=== PATIENT | female | born 1970 | race Caucasian/White ===

== ENCOUNTER → 2018-06-10 | Outpatient (CLI) | payer BC ==
[~2018-06-10] MED LIST: FLUC200T45 PO; NITR-65 PO; PHEN200T27 PO
--- NOTE | 2018-06-10 11:01 | Diagnostic Imaging Report ---
INDICATION: Routine screening. COMPARISON: No prior mammograms are available for comparison. This is a baseline study. TECHNIQUE: 2D and 3D bilateral screening mammography was performed with CAD. FINDINGS: Both breasts are heterogeneously dense, limiting the sensitivity of mammography. There is a parenchymal density in the outer right breast at posterior depth, best seen on the CC view. This likely is superiorly located on the MLO view. Additional views are recommended. The left breast is unremarkable. No suspicious microcalcifications are seen. The axillae are unremarkable. IMPRESSION: Right breast density. Additional views are recommended. ACR BI-RADS Category 0: Incomplete. (Needs additional imaging evaluation). Result letter will be mailed to the patient. Note: At least 10% of breast cancer is not imaged by mammography. Dictated by: Dictated on workstation # [id number]
== END ==
LOC: RAD 07:18
PROVIDERS: ATTEND Family Medicine
DX: Z12.31 Encounter for screening mammogram for malignant neoplasm of breast (principal); N64.89 Other specified disorders of breast
CPT/HCPCS: 77067

== ENCOUNTER 2022-07-12 08:05 | Outpatient (CLI) | payer BC ==
[~2022-07-12] VITALS: Ht 170.2 cm; Wt 84.5 kg
[2022-07-12] MEDS ORDERED: LOVA20TA2 PO (08:31)
[2022-07-12] MEDS ORDERED: NF-DICLOTA PO (08:31)
[2022-07-12] MEDS ORDERED: GLIM4TAB5 PO (08:31)
[2022-07-12] MEDS ORDERED: OMEP20CA18 PO (08:31)
[2022-07-12] MEDS ORDERED: PARO10TA3 PO (08:31)
[2022-07-12] MEDS ORDERED: DAPA5TAB PO (08:31)
[2022-07-12 09:20] VITALS: BP 122/75
[2022-07-12 09:33] LABS: BILIRUBIN,URINE NEGATIVE (NEGATIVE); CLARITY,URINE CLEAR; COLOR,URINE YELLOW; GLUCOSE, URINE (UA) 3+ (NEGATIVE); KETONES,URINE NEGATIVE (NEGATIVE); LEUKOCYTE ESTERASE ,URINE NEGATIVE (NEGATIVE); NITRITE,URINE NEGATIVE (NEGATIVE); PROTEIN,URINE NEGATIVE (NEGATIVE)
[2022-07-12] MEDS ORDERED: POTA99CA PO (09:33)
[2022-07-12] MEDS ORDERED: CHOL500050 PO (09:33)
[2022-07-12] MEDS ORDERED: IRON1TAB41 PO (09:33)
[2022-07-12] MEDS ORDERED: DOCU-143 PO (09:33)
[2022-07-12 09:44] LABS: BACTERIA,URINE NEGATIVE /HPF; SQUAMOUS EPITHELIAL CELL,UR RARE /HPF; WBC,URINE RARE /HPF
[2022-07-12 10:05] LABS: BASOPHILS % (AUTO) 1 % (0-10); EOSINOPHILS # (AUTO) 0.2 10^3/uL (0.0-0.3); EOSINOPHILS % (AUTO) 3 % (0-10); HEMATOCRIT 38 % (35-52); HEMOGLOBIN 12.2 g/dL (11.5-16.0); LYMPHOCYTES % (AUTO) 31 % (12-44); MEAN CORPUSCULAR HEMOGLOBIN 28 pg (25-34); MEAN CORPUSCULAR HGB CONC 32 g/dL (32-36); MEAN CORPUSCULAR VOLUME 85 fL (80-99); MEAN PLATELET VOLUME 10.9 fL (9.0-12.2); MONOCYTES # (AUTO) 0.3 10^3/uL (0.0-1.0); MONOCYTES % (AUTO) 5 % (0-12); NEUTROPHILS # (AUTO) 3.9 10^3/uL (1.8-7.8); NEUTROPHILS % (AUTO) 60 % (42-75); PLATELET COUNT 229 10^3/uL (130-400); WHITE BLOOD COUNT 6.4 10^3/uL (4.3-11.0)
--- NOTE | 2022-07-12 10:05 | Physical Therapy Pre-Op Eval ---
PT Pre-Surgical Assessment Type of Surgery Type of Surgery: left total knee Prior Level of Function Current Living Status: Spouse Locomotion (Upon Admit): Independent Subjective Subjective Unrated pain in left knee, varus in left knee Current Living Status: Spouse Entry Into Home: Stairs With Railing Steps Into Home: 7 Motor Control Motor Control: Motor Control WNL ROM ROM: WFL Strength Strength: WFL Gait Independent with transfers and ambulation without using a walker Treatment Rendered Treatment: Patient instructed in assistive device, supported ambulation. Patient instructed in and given written program of ROM and strengthening exercises to be preformed post-op. Patient instructed in movement precautions where applicable. Patient demonstrates understandings of post-operative therapy protocol including gait pattern and exercise program. Pre-operative instruction completed; await physical therapy orders after surg jd. Treatment Goal Met: Yes Charges/GCodes Time In: 923 Time Out: 933 Total Billed Treatment Time: 10 Total Billed Treatment 1 visit CRISTOBAL AMARO PT Jul 12, 2022 10:05
[2022-07-12 10:14] LABS: PROTHROMBIN TIME PATIENT 13.4 SEC (12.2-14.7)
[2022-07-12 10:16] LABS: ALBUMIN 4.1 GM/DL (3.2-4.5); POTASSIUM 4.2 MMOL/L (3.6-5.0)
[2022-07-12 10:17] LABS: CALCIUM 9.5 MG/DL (8.5-10.1)
[2022-07-12 10:19] LABS: TOTAL PROTEIN 6.9 GM/DL (6.4-8.2)
[2022-07-12 10:21] LABS: BILIRUBIN,TOTAL 0.4 MG/DL (0.1-1.0)
[2022-07-12 10:22] LABS: CREATININE SERUM 0.85 MG/DL (0.60-1.30)
[2022-07-12 10:24] LABS: ERYTHROCYTE SEDIMENTATION RATE 11 MM/HR (0-30)
--- NOTE | 2022-07-12 12:49 | Diagnostic Imaging Report ---
INDICATION: Left knee replacement. Preoperative evaluation EXAMINATION: 2 view chest 07/12/2022. FINDINGS: There is a nodular density within the left midlung with no prior imaging available for comparison. Remaining lungs clear. No effusions. No pneumothorax. Heart and pulmonary vasculature normal. IMPRESSION: 1. Masslike density in the left midlung just below the scapula. CT could help exclude a true nodule. Remaining chest unremarkable. Dictated by: Dictated on workstation # [id number]
== END 2022-07-12 14:44 | disposition home or self-care (01) ==
LOC: PREOP 08:05
PROVIDERS: ATTEND Orthopaedic Surgery
DX: Z01.818 Encounter for other preprocedural examination (principal); M17.12 Unilateral primary osteoarthritis, left knee; R53.83 Other fatigue
CPT/HCPCS: 36415; 71046; 80053; 81000; 85025; 85610; 85652; 86850; 86900; 86901; 87081; 93005

== ENCOUNTER → 2022-07-14 | Outpatient (CLI) | payer BC ==
[~2022-07-14] MED LIST changes: +CHOL500050 PO; +DAPA5TAB PO; +DOCU-143 PO; +GLIM4TAB5 PO; +IOHEXOL 350 MG/ML 100 ML (OMNIPAQUE 350) VIAL IV ONE; +IRON1TAB41 PO; +LOVA20TA2 PO; +NF-DICLOTA PO; +NS 100 ML (IVPB) BAG IV ONE; +OMEP20CA18 PO; +PARO10TA3 PO; +POTA99CA PO
--- NOTE | 2022-07-14 13:39 | Diagnostic Imaging Report ---
EXAMINATION: CT chest with contrast, 07/14/2022. TECHNIQUE: Multiple contiguous axial images were obtained through the chest after administration of intravenous contrast. Auto Exposure Controls were utilized during the CT exam to meet ALARA standards for radiation dose reduction. INDICATION: Follow-up abnormal chest x-ray. History of prior molar and cancer with chemotherapy. COMPARISON: Correlation made to radiographs of the chest from 07/12/2022. FINDINGS: On the third series, image #94, there is a focal ill-defined nodular density with central lucency noted. This does not correspond to the radiographic findings but is suspicious for a nodule. A focal inflammatory process is also possible, and a short-term three-month follow-up CT is recommended for reevaluation. An additional small nodule is seen within the right lower lobe towards the superior segment, image #55. The remaining lungs demonstrate evidence of old granulomatous disease. There are small nodules in the left lobe of the thyroid, some of which appear peripherally calcified. Sonographic characterization recommended. Scattered nonenlarged lymph nodes seen within the mediastinum with no lymphadenopathy appreciated. There is no hilar or axillary adenopathy. There is no pericardial effusion. No pleural effusions. Visualized upper abdomen is unremarkable. There is no acute osseous abnormality. Old left rib fractures noted. IMPRESSION: 1. Vague ground-glass nodularity in the left lower lobe. This could be on the basis of an inflammatory or infectious process, but three-month follow-up CT chest recommended to exclude a nodule. This could reevaluate the small nodule within the superior segment of the right lower lobe. 2. Old granulomatous disease. 3. No abnormality seen within the left lung to correspond to the density on radiographs. This must have been caused by artifact. Follow-up chest x-ray could reevaluate. Dictated by: Dictated on workstation # [id number]
== END ==
LOC: RAD 12:15
PROVIDERS: ATTEND Family Medicine
DX: R91.1 Solitary pulmonary nodule (principal); L92.9 Granulomatous disorder of the skin and subcutaneous tissue, unspecified
CPT/HCPCS: 71260

== ENCOUNTER → 2022-07-25 | Outpatient (CLI) | payer BC ==
[~2022-07-25] MED LIST changes: -IOHEXOL 350 MG/ML 100 ML (OMNIPAQUE 350) VIAL IV ONE; -NS 100 ML (IVPB) BAG IV ONE
--- NOTE | 2022-07-25 09:29 | Diagnostic Imaging Report ---
INDICATION: Lower respiratory infection PA and lateral chest Heart and mediastinum are normal. Lungs are clear. There are no effusions or pneumothoraces. IMPRESSION: Unremarkable chest. Dictated by: Dictated on workstation # [id number]
== END ==
LOC: RAD 08:58
PROVIDERS: ATTEND Family Medicine
DX: R91.8 Other nonspecific abnormal finding of lung field (principal)
CPT/HCPCS: 71046

== ENCOUNTER 2022-08-23 05:30 | Outpatient (CLI) | payer BC ==
[~2022-08-23] VITALS: Ht 170.2 cm; Wt 84.5 kg
[2022-08-23 09:01] VITALS: BP 115/74
[2022-08-23 09:45] LABS: BASOPHILS # (AUTO) 0.1 10^3/uL (0.0-0.1); BASOPHILS % (AUTO) 1 % (0-10); EOSINOPHILS # (AUTO) 0.3 10^3/uL (0.0-0.3); EOSINOPHILS % (AUTO) 4 % (0-10); HEMATOCRIT 41 % (35-52); HEMOGLOBIN 13.3 g/dL (11.5-16.0); LYMPHOCYTES # (AUTO) 2.2 10^3/uL (1.0-4.0); LYMPHOCYTES % (AUTO) 31 % (12-44); MEAN CORPUSCULAR HEMOGLOBIN 28 pg (25-34); MEAN CORPUSCULAR HGB CONC 33 g/dL (32-36); MEAN CORPUSCULAR VOLUME 85 fL (80-99); MEAN PLATELET VOLUME 11.5 fL (9.0-12.2); MONOCYTES # (AUTO) 0.3 10^3/uL (0.0-1.0); MONOCYTES % (AUTO) 5 % (0-12); NEUTROPHILS # (AUTO) 4.2 10^3/uL (1.8-7.8); NEUTROPHILS % (AUTO) 59 % (42-75); PLATELET COUNT 280 10^3/uL (130-400); WHITE BLOOD COUNT 7.1 10^3/uL (4.3-11.0)
[2022-08-23 09:47] LABS: BILIRUBIN,URINE NEGATIVE (NEGATIVE); CLARITY,URINE CLEAR; COLOR,URINE YELLOW; GLUCOSE, URINE (UA) 3+ (NEGATIVE); KETONES,URINE NEGATIVE (NEGATIVE); LEUKOCYTE ESTERASE ,URINE NEGATIVE (NEGATIVE); NITRITE,URINE NEGATIVE (NEGATIVE); PH,URINE 6.5 (5-9); PROTEIN,URINE NEGATIVE (NEGATIVE)
[2022-08-23 09:55] LABS: BACTERIA,URINE NEGATIVE /HPF; SQUAMOUS EPITHELIAL CELL,UR 0-2 /HPF
[2022-08-23 09:56] LABS: AMORPHOUS SEDIMENT,UR RARE AMOR URATES /LPF
[2022-08-23 09:59] LABS: INR 0.9 (0.8-1.4); PROTHROMBIN TIME PATIENT 12.8 SEC (12.2-14.7)
[2022-08-23 10:03] LABS: ALBUMIN 4.5 GM/DL (3.2-4.5); BILIRUBIN,TOTAL 0.5 MG/DL (0.1-1.0); CALCIUM 10.1 MG/DL (8.5-10.1); CREATININE SERUM 0.9 MG/DL (0.60-1.30); TOTAL PROTEIN 7.7 GM/DL (6.4-8.2)
[2022-08-23 10:11] LABS: ERYTHROCYTE SEDIMENTATION RATE 11 MM/HR (0-30)
== END 2022-08-23 12:22 ==
LOC: PREOP 05:30
PROVIDERS: ATTEND Orthopaedic Surgery
DX: Z01.818 Encounter for other preprocedural examination (principal); M17.12 Unilateral primary osteoarthritis, left knee
CPT/HCPCS: 36415; 80053; 81000; 82308; 85025; 85610; 85652; 87081

== ENCOUNTER 2022-08-30 05:56 | Inpatient (IN) | payer BC ==
--- NOTE | 2022-08-23 06:55 | HISTORY AND PHYSICAL ---
DATE OF SERVICE: 08/30/2022 ADMISSION HISTORY AND PHYSICAL This will be for inpatient admission on 08/30/2022 for left total knee arthroplasty. The patient will require regular inpatient admission due to pain management needs, physical therapy and gait abnormalities. HISTORY: The patient is a 52-year-old female with longstanding progressive left knee pain. Radiographs revealed severe medial and patellofemoral arthrosis with osteophyte formation. She has undergone treatment with injections, which provided only temporary relief of her symptoms. She reports progressive loss of function and activity limitations. Because of this, she has elected to proceed with surgical intervention. REVIEW OF SYSTEMS: No chest pain, no shortness of breath. No dysuria. PAST MEDICAL HISTORY: Diabetes mellitus. PAST SURGICAL HISTORY: and D and C. FAMILY HISTORY: Unknown. PRIMARY CARE PROVIDER: Dr. Adkins. MEDICATIONS: Omeprazole, diclofenac, paroxetine, lovastatin, glimepiride, and Farxiga. ALLERGIES: PENICILLIN, METAL, AND CODEINE. SOCIAL HISTORY: The patient denies alcohol and tobacco use. PHYSICAL EXAMINATION: GENERAL: The patient is well-developed, well-nourished, in no acute distress. HEENT: Normocephalic, atraumatic. Pupils are equal, round and reactive to light. Oropharynx is clear. NECK: Supple. No lymphadenopathy. LUNGS: Clear to auscultation bilaterally. HEART: Regular rate and rhythm. ABDOMEN: Soft, nontender, nondistended. EXTREMITIES: The left knee demonstrates varus alignment. She is tender along her medial femoral condyle. She has pain medially with Edison's. Range of motion is 0/3/120. There is no varus or valgus laxity. Negative anterior and posterior drawer. IMPRESSION: Severe left knee osteoarthritis. PLAN: Left total knee arthroplasty. The risks, benefits, options, ramifications and recovery have been discussed at length with the patient. She understands and wishes to proceed. Job ID: [id number] DocumentID: [id number] Dictated Date: 08/10/2022 15:31:52 Protector Plate Attacher Date: 08/10/2022 18:27:00 Dictated By: CODIE PINEDA MD
[~2022-08-30] VITALS: Ht 170.2 cm; Wt 84.5 kg
[2022-08-30] VITALS (12 sets, daily range): BP systolic 100–148; BP diastolic 65–89
[2022-08-30] MEDS ORDERED: LIDOCAINE PF 2% 5 ML (XYLOCAINE) VIAL ONE (06:52)
[2022-08-30] MEDS ORDERED: ROPIVACAINE 5MG/ML 30ML VIAL ONE (06:52)
[2022-08-30] MEDS ORDERED: MIDAZOLAM 2 MG/2 ML (VERSED) VIAL ONE (06:52)
[2022-08-30] MEDS ORDERED: NS (IVPB) 50 ML ONE (06:57)
[2022-08-30] MEDS ORDERED: CEFUROXIME 1.5 GM/15 ML (ZINACEF) VIAL ONE (06:57)
[2022-08-30] MEDS ORDERED: fentaNYL INJ 100 MCG/2 ML AMP ONE (06:57)
[2022-08-30] MEDS ORDERED: CEFUROXIME INJECTION 1,500 MG in NS (IVPB) 50 ML IV ONE (07:00)
[2022-08-30] MEDS: LACTATED RINGERS 1,000 ML IV PRN ×2 (07:09→08:05)
[2022-08-30] MEDS ORDERED: diphenhydrAMINE 50 MG/ML INJ (BENADRYL) IVP PRN (07:15)
[2022-08-30] MEDS ORDERED: morphine PCA 100 MG/100 ML BAG IV PRN (07:15)
[2022-08-30] MEDS ORDERED: NALOXONE 0.4 MG/ML 1 ML (NARCAN) VIAL IV PRN (07:15)
[2022-08-30] MEDS ORDERED: INTRA-ARTICULAR IU ONE ×5 (07:30)
--- NOTE | 2022-08-30 07:31 | Progress Note-Post Operative ---
Post-Operative Progess Note Surgeon (s)/Textile Finisher (s) Surgeon CODIE PINEDA MD Textile Finisher: Abilio Bunch Pre-Operative Diagnosis left knee primary osteoarthritis Post-Operative Diagnosis left knee primary osteoarthritis Procedure & Operative Findings Date of Procedure 08/30/22 Procedure Performed/Findings left total knee arthroplasty Anesthesia Type GETA Estimated Blood Loss Estimated blood loss (mL): minimal Specimens/Packing Specimens Removed none Packing: none CODIE PINEDA MD Aug 30, 2022 07:31
--- NOTE | 2022-08-30 07:31 | Progress Note-Pre Operative ---
Pre-Operative Progress Note Date of Available H&P: Aug 10, 2022 Date H&P Reviewed: Aug 30, 2022 Time H&P Reviewed: 07:11 Changes from last HP none Pre-Operative Diagnosis: left knee primary osteoarthritis CODIE PINEDA MD Aug 30, 2022 07:30
--- NOTE | 2022-08-30 07:33 | D/C HH Face to Face Order ---
D/C Face to Face Orders Reconcile Patient Problems Problems Reviewed?: Yes Instructions for Patient Via [facility] [employer], Patient Instructions/FollowUp: three weeks Physician to follow Patient: three weeks Discharge Diet for Home: Regular Diet Patient Data-Allergies,Ht & Wt Patient Allergies: Coded Allergies: Penicillins (Verified Allergy, Unknown, UNKNOWN CHILD, 07/12/22) codeine (Verified Allergy, Unknown, ITCHY, 07/12/22) Uncoded Allergies: METAL (Allergy, Unknown, ALL EXCEPT TITANIUM, 07/12/22) Home Health Need/Face to Face Date of Face to Face: Aug 30, 2022 Clinical Findings: Muscle weakness, Pain with ambulation, Unsteady gait I have seen Pt [id number]: Yes Discharged To: Home Diagnosis/Conditions: left total knee arthroplasty Patient is Homebound due to: Muscle weakness, Pain w/ambulation Homebound Status Due to the above stated illness, injury or surgical procedure (medical condition or diagnosis) and associated clinical findings, the patient is homebound because of his/her inability to leave home except with aid of a supportive device and/or person AND leaving the home requires a considerable and taxing effort or is medically contraindicated. Pt req the following assistanc: Walker Home Health Nursing Orders Home Health Services Order: Physical Therapy-Evaluate & Treat DC left knee roopa and apply steri strips 09/13/22 Home Health Infusion Therapy Line Start Date: Aug 30, 2022 Therapy Orders Therapy Orders: Physical Therapy, PT to assess for OT Therapy Specific Orders: Eval assistive deivces, Teach enviro modifications/safety, Gait training, Increase strength/endurance, Provider maintenance therapy, Restore ROM Certify Stmt I certify that this patient is under my care and that I, a nurse practitioner or a physician; a orthopedic physician assistant working with me, had a face to face encounter that - meets the physician face to face encounter requirements with this patient as dated. CODIE PINEDA MD Aug 30, 2022 07:33
[2022-08-30] MEDS ORDERED: HYDROmorphone 2 MG/ML VIAL (DILAUDID) ONE (07:59)
[2022-08-30] MEDS ORDERED: SEVOFLURANE (ULTANE) 15 ML INHAL SOLN ONE (08:20)
[2022-08-30] MEDS ORDERED: TRANEXAMIC ACID 100 MG/ML 10 ML INJECTION ONE (08:20)
[2022-08-30] MEDS ORDERED: proPOfol 200 MG/20 ML (DIPRIVAN) VIAL IV ONE (08:20)
[2022-08-30] MEDS ORDERED: ONDANSETRON 4 MG/2 ML (SDV) Z0FRAN ONE ×2 (08:30→09:47)
[2022-08-30] MEDS: ASPIRIN E.C. 81 MG (ECOTRIN) TAB PO SCH (09:00)
--- NOTE | 2022-08-30 09:13 | Anesthesia-General Post-Op ---
General Patient Condition Mental Status/LOC: Same as Preop Cardiovascular: Satisfactory Nausea/Vomiting: Absent Respiratory: Satisfactory Pain: Controlled Complications: Absent Post Op Complications Complications None Follow Up Care/Instructions Patient Instructions None needed. Anesthesia/Patient Condition Patient Condition Patient is doing well, no complaints, stable vital signs, no apparent adverse anesthesia problems. No complications reported per nursing. TENZIN BURKETT CRNA Aug 30, 2022 09:13
[2022-08-30] MEDS ORDERED: fentaNYL INJ 100 MCG/2 ML AMP IVP ONE (09:15)
[2022-08-30] MEDS ORDERED: ONDANSETRON 4 MG/2 ML (SDV) Z0FRAN IVP PRN (09:15)
--- NOTE | 2022-08-30 10:47 | Progress Note ---
Standard Progress Note Progress Notes/Assess & Plan Date Seen by a Provider: Aug 30, 2022 Time Seen by a Provider: 09:15 Progress/Assessment & Plan post op check no complaints radiographs--HW well positioned without fracture LLE--2 plus DP with brisk cap refill sensation intact to light touch throughout intact DF and PF of toes and ankle s/p LTKA mobilize as able CODIE PINEDA MD Aug 30, 2022 10:47
[2022-08-30] MEDS: NS IV 1000 ML 1,000 ML IV SCH ×2 (11:17→22:13)
[2022-08-30] MEDS: ONDANSETRON 4 MG/2 ML (SDV) Z0FRAN IVP PRN (11:17)
[2022-08-30] MEDS: inSUlin ASPART (NovoLOG) 1 UNIT/0.01 ML (CHARGE PER UNIT) SC SCH ×3 (11:31→20:18)
[2022-08-30] MEDS: SENNA W/DOCUSATE (SENOKOT S) TABLET PO SCH ×2 (11:46→20:19)
--- NOTE | 2022-08-30 11:53 | Occ Therapy Progress Note ---
Therapy Progress Note OT order received, OT to evaluate post op day 2 pending patient hospital course. ELIZA ENCINAS OT Aug 30, 2022 11:53
--- NOTE | 2022-08-30 14:42 | Physical Therapy Evaluation ---
PT Evaluation-General Medical Diagnosis Admission Date Aug 30, 2022 at 05:56 Medical Diagnosis: Left TKA Onset Date: Aug 29, 2022 Therapy Diagnosis Therapy Diagnosis: Gait deficit, strength deficit Precautions Precautions/Isolations: Fall Prevention, Standard Precautions Weight Bear Status Right Lower Extremity: Right Full Weight Bearing Left Lower Extremity: Left Full Weight Bearing Referral Physician: Jewell Reason for Referral: Evaluation/Treatment Medical History Reviewed History: Yes Social History Home: [facility] Current Living Status: Other Family Entry Into Home: Stairs With Railing PT Steps Into Home: 5 PT Steps Inside Home: 16 Prior Prior Level of Function SCALE: Activities may be completed with or without assistive devices. 0-Pwfqjyzuji-jmykjwq completes the activity by him/herself with no assistance from a helper. 5-Set-up or Clean-up Assistance-helper sets up or cleans up; patient completes activity. [place] assists only prior to or following the activity. 4-Supervision or Touching Assistance-helper provides verbal cues and/or touc parrish/steadying and/or contact guard assistance as patient completes activity. Assistance may be provided throughout the activity or intermittently. 3-Partial/Moderate Assistance-helper does LESS THAN HALF the effort. [place] lifts, holds or supports trunk or limbs, but provides less than half the effort. 2-Substantial/Maximal Assistance-helper does MORE THAN HALF the effort. [place] lifts or holds trunk or limbs and provides more than half the effort. 4-Cdgslvakr-ilaesn does ALL the effort. Patient does none of the effort to complete the activity. Or, the assistance of 2 or more helpers is required for the patient to complete the activity. If activity was not attempted, code reason: 7-Patient Refused. 9-Not Applicable-not attempted and the patient did not perform the activity before the current illness, exacerbation or injury. 10-Not Attempted due to Environmental Limitations-(lack of equipment, weather restraints, etc.). 88-Not Attempted due to Medical Conditions or Safety Concerns. Bed Mobility: 6 Transfers (B,C,W/C): 6 Gait: 6 Stairs: 6 Indoor Mobility (Ambulation): Independent Stairs: Independent Prior Devices Use: None Has a straight cane that she brought PT Evaluation-Current Subjective Patient sitting on the edge of the bed upon PT arrival, reports she needs the BSC urgently. Patient then reports she needs the tapia as she feels like she is going to vomit. Patient vomits moderate amount of fluids. Nurse notified. Rates pain currently at 0/10 Objective Patient Orientation: Person, Place, Time, Situation Attachments: Polar Pack, IV ROM/Strength ROM Lower Extremities Left knee extension ~15 degrees from neutral AROM, Flexion 90 degrees AROM All right LE and left Hip/ankle ROMs WFLs Strength Lower Extremities Right LE 5/5 all planes Left knee flexion/ extension 3/5; all other LLE planes 4/5 Sensory Sensation Right Lower Extremit: Intact Sensation Left Lower Extremity: Intact Transfers Roll Left to Right (QC): 6 Sit to Lying (QC): 6 Lying to Sitting/Side of Bed(Q: 6 Sit to Stand (QC): 4 Chair/Ojc-lw-Ypddt Xfer(QC): 4 Toilet Transfer (QC): 4 Gait Does the Patient Walk?: Yes Mode of Locomotion: Walk Anticipated Mode of Locomotion: Walk Walk 10 feet (QC): 4 Walk 50 ft with 2 Turns(QC): 4 Distance: 100 Gait Assistive Device: FWW Balance Sitting Static: Normal Sitting Dynamic: Normal Standing Static: Fair Standing Dynamic: Fair Assessment/Needs Patient tolerated treatment well given vomiting upon PT arrival. She performs all bed mobility with I, and all transfers with SBA. Patient ambulates 100 feet with FWW, with CGA and verbal cues for safety, progression, balance and conservation of energy. Patient in chair post treatment with all needs met, nursing notified, call light in reach. Rehab Potential: Good PT Retirement Goals Chef & Owner Goals PT Chef & Owner Goals Time Frame: Sep 30, 2022 Roll Left & Right (QC): 6 Sit to Lying (QC): 6 Lying-Sitting on Side/Bed(QC): 6 Sit to Stand (QC): 6 Chair/Ugw-wm-Ojogz Xfer(QC): 6 Toilet Transfer (QC): 6 Car Transfer (QC): 6 Does the Patient Walk: Yes Walk 10 feet (QC): 6 Walk 50ft with 2 Turns (QC): 6 Walk 150 ft (QC): 6 1 Step (curb) (QC): 4 4 Steps (QC): 4 12 Steps (QC): 4 PT Plan Problem List Problem List: Activity Tolerance, Functional Strength, Safety, Balance, Gait, Transfer, Bed Mobility, ROM Treatment/Plan Treatment Plan: Continue Plan of Care Treatment Plan: Bed Mobility, Education, Functional Activity Sherwin, Functional Strength, Group Therapy, Gait, Safety, Therapeutic Exercise, Transfers Treatment Duration: Sep 30, 2022 Frequency: 11 times per week Estimated Hrs Per Day: .25 hour per day Patient and/or Family Agrees t: Yes Safety Risks/Education Patient Education: Gait Training, Transfer Techniques Teaching Recipient: Patient Teaching Methods: Demonstration, Discussion Response to Teaching: Verbalize Understanding, Return Demonstration Time Time In: 1400 Time Out: 1420 DATE: Aug 30, 2022 Total Billed Treatment Time: 20 Total Billed Treatment Visit, VIVIAN AVILES PT Aug 30, 2022 14:41
[2022-08-30] MEDS ORDERED: DOCU100C37 PO (15:12)
[2022-08-30] MEDS ORDERED: DAPA10TA PO (15:12)
[2022-08-30] MEDS ORDERED: OXYC1TAB11 PO (15:12)
[2022-08-30] MEDS ORDERED: MULT-1136 PO (15:12)
[2022-08-30] MEDS ORDERED: DICL50TA6 PO (15:12)
--- NOTE | 2022-08-30 15:34 | Diagnostic Imaging Report ---
INDICATION: Postoperative. TECHNIQUE: 2 portable post operative radiographs of the knee 9:20 AM CORRELATION STUDY: None FINDINGS: There are postsurgical changes of a total knee arthroplasty. Alignment is anatomic. Installed hardware appearing unremarkable. Overlying soft tissue gas collections and skin roopa are present. IMPRESSION: Postsurgical changes of a left total knee replacement. Dictated by: Dictated on workstation # [id number]
[2022-08-30] MEDS: CEFUROXIME INJECTION 750 MG in NS (IVPB) 50 ML IV SCH ×2 (15:57→23:35)
--- NOTE | 2022-08-30 16:33 | Consultation - Hospitalist ---
HPI History of Present Illness: HPI/Chief Complaint Jewell Garcia is a 52 year old female with PMH T2DM, HLD, GERD, OA, who presented for a scheduled TKA. She underwent her surgery with Dr. Corcoran this morning. She had some nausea and vomiting upon arriving to the floor. She is feeling better now. She denies pain. She denies shortness of breath. She is sitting on the edge of the bed. She has just arrived and so she has not yet walked. She has no other complaints or concerns. Source: patient Exam Limitations: no limitations Date Seen 08/30/22 Attending Physician Pradeep Adkins MD PCP Admitting Physician: Rahul Corcoran MD Attending Physician: Rahul Corcoran MD Referring Physician Date of Admission Aug 30, 2022 at 05:56 Home Medications & Allergies Home Medications Reviewed patient Home Medication Reconciliation performed by pharmacy medication reconciliations video technician and/or nursing. Patients Allergies have been reviewed. Allergies Allergies Coded Allergies Penicillins (Verified Allergy, Unknown, UNKNOWN CHILD; PT TOLERATED CEFUROXIME, 08/30/22) codeine (Verified Allergy, Unknown, ITCHY; PT TOLERATED MORPHINE AND DILUADID, 08/30/22) Uncoded Allergies METAL ( Allergy, Unknown, ALL EXCEPT TITANIUM, 07/12/22) Past Fhquvpx-Iixxrv-Jmkaox Hx Immunizations Up To Date Date of Influenza Vaccine: Feb 08, 2022 First/Initial COVID19 Vaccinat: 06/12/20 Second COVID19 Vaccination Moshe: 07/02/20 Seasonal Allergies Seasonal Allergies: Yes Past Medical History Currently Using CPAP: No Currently Using BIPAP: No High Cholesterol Headaches /Migraines Sexually Transmitted Disease: No HIV/AIDS: No Bladder Infection Gastroesophageal Reflux Diabetes, Non-Insulin dep Cataract What Type of Treatment Did You: Surgical Intervention Anxiety Blood Disorders: No Adverse Reaction/Blood Tranf: No Family Medical History No Pertinent Family Hx Review of Systems Constitutional: no symptoms reported Respiratory: no symptoms reported Cardiovascular: no symptoms reported Gastrointestinal: nausea, vomiting Genitourinary: no symptoms reported Physical Exam Physical Exam Vital Signs Vital Signs - First Documented 08/30/22 06:50 Temp 36.7 Pulse 102 Resp 20 B/P (MAP) 100/73 (82) Pulse Ox 98 O2 Delivery Room Air Capillary Refill : Less Than 3 Seconds Height, Weight, BMI Height: '" Weight: lbs. oz. kg; 29.17 BMI Method:Stated General Appearance: No Apparent Distress, WD/WN HEENT: PERRL/EOMI, Pharynx Normal Neck: Normal Inspection, Supple Respiratory: Lungs Clear, No Respiratory Distress Cardiovascular: Regular Rate, Rhythm, No Murmur Gastrointestinal: Normal Bowel Sounds, Non Tender, Soft Extremity: Normal Inspection, No Pedal Edema Neurologic/Psychiatric: Alert, Normal Mood/Affect Skin: Normal Color, Warm/Dry Results Results/Procedures Labs Patient resulted labs reviewed. Assessment/Plan Assessment and Plan Assess & Plan/Chief Complaint s/p TKA OA Ortho primary, Dr. Corcoran Pain regimen Bowel regimen Incentive spirometry PT/OT Antiemetics as needed T2DM Holding home meds Sliding scale insulin GERD HLD Post-menopausal Continue home meds as able DVT prophylaxis: Lovenox Diagnosis/Problems Diagnosis/Problems (1) Osteoarthritis of left knee Status: Acute Qualifiers: Osteoarthritis type: primary Qualified Codes: M17.12 - Unilateral primary osteoarthritis, left knee (2) S/P total knee arthroplasty Status: Acute Qualifiers: Laterality: left Qualified Codes: Z96.652 - Presence of left artificial knee joint (3) T2DM (type 2 diabetes mellitus) Status: Chronic Qualifiers: Diabetes mellitus correction insulin use: without watermelon harvesting supervisor use Diabetes mellitus complication status: with hyperglycemia Qualified Codes: E11.65 - Type 2 diabetes mellitus with hyperglycemia (4) HLD (hyperlipidemia) Status: Chronic (5) GERD (gastroesophageal reflux disease) Status: Chronic (6) Post-menopausal Status: Chronic VALERIA DODSON MD Aug 30, 2022 16:33
[2022-08-30] MEDS: AtorvaSTATin TABLET 10 MG TABLET PO SCH (20:18)
[2022-08-30] MEDS: oxyCODONE/APAP 5/325MG (PERCOCET 5) TABLET PO PRN (20:19)
[2022-08-30] MEDS ORDERED: NON-FORMULARY MEDICATION 1 EA EA (Lovastatin 20 MG) PO SCH (21:00)
[2022-08-31] MEDS: oxyCODONE/APAP 5/325MG (PERCOCET 5) TABLET PO PRN ×6 (03:14→22:27)
[2022-08-31 03:16] VITALS: BP 138/72
[2022-08-31] MEDS: inSUlin ASPART (NovoLOG) 1 UNIT/0.01 ML (CHARGE PER UNIT) SC SCH ×4 (05:20→21:21)
[2022-08-31 05:36] LABS: HEMOGLOBIN 9.8 g/dL (11.5-16.0)
[2022-08-31] MEDS: ONDANSETRON 4 MG/2 ML (SDV) Z0FRAN IVP PRN (06:20)
--- NOTE | 2022-08-31 07:59 | Progress Note ---
Standard Progress Note Progress Notes/Assess & Plan Date Seen by a Provider: Aug 31, 2022 Time Seen by a Provider: 07:50 Progress/Assessment & Plan post op check no complaints radiographs--HW well positioned without fracture LLE--2 plus DP with brisk cap refill sensation intact to light touch throughout intact DF and PF of toes and ankle s/p LTKA mobilize as able Final Diagnosis no complaints Laboratory Tests Test 08/30/22 11:10 08/30/22 16:09 08/30/22 20:08 08/31/22 05:00 Range/Units Glucometer 281 H 234 H 223 H 70-110 MG/DL Hemoglobin 9.8 L 11.5-16.0 g/dL Hematocrit 30 L 35-52 % Test 08/31/22 05:05 Range/Units Glucometer 127 H 70-110 MG/DL Vital Signs Date Time Temp Pulse Resp B/P (MAP) Pulse Ox O2 Delivery O2 Flow Rate FiO2 08/31/22 03:16 37.0 88 18 138/72 (94) 98 Room Air 08/30/22 23:38 37.3 94 18 110/65 (80) 98 Room Air 0.00 0.00 08/30/22 20:15 Room Air 08/30/22 20:02 36.8 93 18 126/89 (101) 100 Room Air 08/30/22 16:05 36.5 100 17 120/67 (84) 99 Room Air 08/30/22 11:59 36.1 108 20 131/70 (90) 99 Room Air 08/30/22 11:47 36.0 16 08/30/22 10:05 36.0 105 16 136/75 (95) 95 Room Air 08/30/22 09:55 Room Air 08/30/22 09:50 36.3 12 141/83 (102) 96 Room Air 08/30/22 09:45 Room Air 08/30/22 09:40 12 148/84 (105) 100 OxyMask 3.00 08/30/22 09:30 OxyMask 6 08/30/22 09:30 12 138/82 (100) 100 OxyMask 3.00 08/30/22 09:20 13 137/82 (100) 100 OxyMask 6 08/30/22 09:15 OxyMask 6 08/30/22 09:10 12 128/71 (90) 100 OxyMask 6 08/30/22 09:03 OxyMask 6 08/30/22 09:03 36.2 22 115/70 (85) 100 OxyMask 6 I & O 08/31/22 07:00 Intake Total 4950 ml Output Total 1 ml Balance 4949 ml LLE--dressing intact no calf tenderness neg Cassidy's NVI distally s/p LTKA doing well PT/OT CODIE PINEDA MD Aug 31, 2022 07:59
[2022-08-31] MEDS: SENNA W/DOCUSATE (SENOKOT S) TABLET PO SCH ×2 (08:16→20:19)
[2022-08-31] MEDS: ASPIRIN E.C. 81 MG (ECOTRIN) TAB PO SCH (08:16)
[2022-08-31] MEDS: PANTOPRAZOLE 20 MG TABLET (PROTONIX) PO SCH (08:16)
[2022-08-31] MEDS: PARoxetine 10 MG (PAXIL) TAB PO SCH (08:16)
[2022-08-31] MEDS: ENOXAPARIN INJECTION 30 MG/0.3 ML SYR SC SCH ×2 (08:17→20:19)
[2022-08-31 08:25] VITALS: BP 122/61
--- NOTE | 2022-08-31 08:30 | Occ Therapy Progress Note ---
Therapy Progress Note OT attempted to evaluate patient this morning, patient nausea preventing participation. OT will return when nausea resolves to level of participation. ELIZA ENCINAS OT Aug 31, 2022 08:30
[2022-08-31] MEDS ORDERED: OMEPRAZOLE 20 MG (PriLOSEC) CAP NON-FORMULARY PO SCH (09:00)
--- NOTE | 2022-08-31 09:30 | Physical Therapy Daily Note ---
PT Daily Note-Current Subjective Patient agrees to PT. c/o nausea Pain Numeric Pain Scale: 8 Location: Left Location Body Site: Knee Pain Description: Acute Comment: CERTIFIED ENERGY MANAGER and pain pill issued Section J - Health Conditions 1. Rarely or not at all 2. Occasionally 3. Frequently 4. Almost constantly 8. Unable to answer Pain Effect on Sleep: 2 Pain Interference with Therapy: 2 Pain Interference w/Day-to-Day: 2 Mental Status Patient Orientation: Normal For Age Attachments: Polar Pack, IV Transfers SCALE: Activities may be completed with or without assistive devices. 6-Nqplhfdvde-okfgmqd completes the activity by him/herself with no assistance from a helper. 5-Set-up or Clean-up Assistance-helper sets up or cleans up; patient completes activity. [place] assists only prior to or following the activity. 4-Supervision or Touching Assistance-helper provides verbal cues and/or touching/steadying and/or contact guard assistance as patient completes activity. Assistance may be provided throughout the activity or intermittently. 3-Partial/Moderate Assistance-helper does LESS THAN HALF the effort. [place] lifts, holds or supports trunk or limbs, but provides less than half the effort. 2-Substantial/Maximal Assistance-helper does MORE THAN HALF the effort. [place] lifts or holds trunk or limbs and provides more than half the effort. 2-Hxpotxpok-kaowra does ALL the effort. Patient does none of the effort to complete the activity. Or, the assistance of 2 or more helpers is required for the patient to complete the activity. If activity was not attempted, code reason: 7-Patient Refused. 9-Not Applicable-not attempted and the patient did not perform the activity before the current illness, exacerbation or injury. 10-Not Attempted due to Environmental Limitations-(lack of equipment, weather restraints, etc.). 88-Not Attempted due to Medical Conditions or Safety Concerns. Lying to Sitting/Side of Bed(Q: 6 Sit to Stand (QC): 4 Chair/Irs-bw-Rycea Xfer(QC): 4 Weight Bearing Right Lower Extremity: Right Full Weight Bearing Left Lower Extremity: Left Full Weight Bearing Gait Training Distance: 250' Walk 10 feet (QC): 4 Walk 50 ft with 2 Turns(QC): 4 Walk 150 ft (QC): 4 Gait Assistive Device: FWW slow, antalgic/VC's for heel/toe gait sequence Exercises Supine Ex: Ankle pumps, Quad Set, Heel Slides, Straight leg raise Supine Reps: 15 Seated Therapy Exercises: Long arc quads Seated Reps: 15 Assessment Patient progressing with treatment plan and does appear to limit left knee flexion due to pain. PT to increase activity as tolerated by patient. Patient is currently SBA with all mobility. PT Rn Womens Health Goals Usp Goals PT Usp Goals Time Frame: Sep 30, 2022 Roll Left & Right (QC): 6 Sit to Lying (QC): 6 Lying-Sitting on Side/Bed(QC): 6 Sit to Stand (QC): 6 Chair/Jmh-dj-Wnpyo Xfer(QC): 6 Toilet Transfer (QC): 6 Car Transfer (QC): 6 Does the Patient Walk: Yes Walk 10 feet (QC): 6 Walk 50ft with 2 Turns (QC): 6 Walk 150 ft (QC): 6 1 Step (curb) (QC): 4 4 Steps (QC): 4 12 Steps (QC): 4 PT Plan Treatment/Plan Treatment Plan: Continue Plan of Care Treatment Plan: Bed Mobility, Education, Functional Activity Sherwin, Functional Strength, Group Therapy, Gait, Safety, Therapeutic Exercise, Transfers Treatment Duration: Sep 30, 2022 Frequency: 11 times per week Estimated Hrs Per Day: .25 hour per day Patient and/or Family Agrees t: Yes Time Time In: 745 Time Out: 814 DATE: Aug 31, 2022 Total Billed Treatment Time: 29 Total Billed Treatment 1 visit EX 13 min GT 16 min BETH LÓPEZ PT Aug 31, 2022 09:30
[2022-08-31] MEDS ORDERED: CYCLOBENZAPRINE 10 MG (FLEXERIL) TAB PO PRN (10:00)
[2022-08-31] MEDS ORDERED: fluCOnazole (DIFLUCAN) 100 MG TAB PO NR (10:00)
[2022-08-31] MEDS ORDERED: fentaNYL INJ 100 MCG/2 ML AMP IVP PRN ×2 (10:00→10:30)
[2022-08-31] MEDS: CYCLOBENZAPRINE 10 MG (FLEXERIL) TAB PO PRN ×2 (10:19→21:21)
[2022-08-31] MEDS: NS IV 1000 ML 1,000 ML IV SCH ×2 (11:12→20:20)
--- NOTE | 2022-08-31 11:34 | Occupational Therapy Eval ---
OT Evaluation-General/PLF Medical Diagnosis Admission Date Aug 30, 2022 at 05:56 Medical Diagnosis: Left TKA Onset Date: Aug 29, 2022 Therapy Diagnosis Therapy Diagnosis: WEAKNESS Precautions Precautions/Isolations: Standard Precautions Weight Bear Status Weight Bearing Restriction: Weight Bearing/Tolerated Referral Physician: Jewell Referral Reason: Self Care, Evaluation/Treatment Medical History Pertinent Medical History: DM Current History LTKA Reviewed History: Yes Social History Home: Multilevel Current Living Status: Other Family Entry Into Home: Stairs With Railing Steps Into Home: 5 Steps Inside Home: 16 ADL-Prior Level of Function SCALE: Activities may be completed with or without assistive devices. 9-Mvjovrceuo-mxxykbf completes the activity by him/herself with no assistance from a helper. 5-Set-up or Clean-up Assistance-helper sets up or cleans up; patient completes activity. [place] assists only prior to or following the activity. 4-Supervision or Touching Assistance-helper provides verbal cues and/or touching/steadying and/or contact guard assistance as patient completes activity. Assistance may be provided throughout the activity or intermittently. 3-Partial/Moderate Assistance-helper does LESS THAN HALF the effort. [place] lifts, holds or supports trunk or limbs, but provides less than half the effort. 2-Substantial/Maximal Assistance-helper does MORE THAN HALF the effort. [place] lifts or holds trunk or limbs and provides more than half the effort. 5-Nljugrezz-kqgonr does ALL the effort. Patient does none of the effort to complete the activity. Or, the assistance of 2 or more helpers is required for the patient to complete the activity. If activity was not attempted, code reason: 7-Patient Refused. 9-Not Applicable-not attempted and the patient did not perform the activity before the current illness, exacerbation or injury. 10-Not Attempted due to Environmental Limitations-(lack of equipment, weather restraints, etc.). 88-Not Attempted due to Medical Conditions or Safety Concerns. Self Care: Independent Functional Cognition: Independent Drive Self: Yes OT Current Status Subjective NAUSEA SUBSIDED AGREEABLE TO OT Mental Status/Objective Patient Orientation: Person, Place, Time, Situation Attachments: IV Current Glasses/Contacts: Yes Upper Extremity ROM BUE ROM WFLS Upper Extremity Strength BUE 4/5 GROSSLY ADL-Treatment Eating (QC): 5 Oral Hygiene (QC): 5 Shower/Bathe Self (QC): 4 Upper Body Dressing (QC): 5 Lower Body Dressing (QC): 5 On/Off Footwear (QC): 5 Toileting Hygiene (QC): 5 Education OT Patient Education: Correct positioning, Modified ADL techniques, Progress toward Goal/Update tx plan, Purpose of tx/functional activities, Reviewed precautions, Rehab process, Safety issues, Transfer techniques, Use of adapted equipment Teaching Recipient: Patient Teaching Methods: Demonstration, Discussion Response to Teaching: Return Demonstration OT Customer Marketing Assistant Goals Customer Marketing Assistant Goals 1=Demonstrate adherence to instructed precautions during ADL tasks. 2=Patient will verbalize/demonstrate understanding of assistive devices/modifications for ADL. 3=Patient will improve strength/tolerance for activity to enable patient to perform ADL's. OT Education/Plan Problem List/Assessment Assessment: No Skilled OT Needs ID'd Discharge Recommendations Plan/Recommendations: Discontinue OT Therapy Discharge Recommendati: Home & Family Treatment Plan/Plan of Care Treatment,Training & Education: Yes Patient would benefit from OT for education, treatment and training to promote independence in ADL's, mobility, safety and/or upper extremity function for ADL's. Plan of Care: ADL Retraining, OTHER (EVAL ONLY) Treatment Duration: Aug 31, 2022 Frequency: 1 time per week Estimated Hrs Per Day: .25 hour per day Rehab Potential: Good RETURN TO BED W/ ALL NEEDS MET Time Start Time: 10:20 Stop Time: 10:43 DATE: Aug 31, 2022 Total Time Billed (hr/min): 23 Billed Treatment Time EVM, ADL 23 MIN ELIZA ENCINAS OT Aug 31, 2022 11:34
[2022-08-31 11:52] VITALS: BP 154/71
--- NOTE | 2022-08-31 13:58 | Physical Therapy Daily Note ---
PT Daily Note-Current Subjective Patient agrees to PT. Pain Numeric Pain Scale: 8 Location: Left Location Body Site: Knee Pain Description: Acute Section J - Health Conditions 1. Rarely or not at all 2. Occasionally 3. Frequently 4. Almost constantly 8. Unable to answer Pain Effect on Sleep: 2 Pain Interference with Therapy: 2 Pain Interference w/Day-to-Day: 2 Transfers SCALE: Activities may be completed with or without assistive devices. 4-Vqiybigkat-ueajjms completes the activity by him/herself with no assistance from a helper. 5-Set-up or Clean-up Assistance-helper sets up or cleans up; patient completes activity. [place] assists only prior to or following the activity. 4-Supervision or Touching Assistance-helper provides verbal cues and/or touching/steadying and/or contact guard assistance as patient completes activity. Assistance may be provided throughout the activity or intermittently. 3-Partial/Moderate Assistance-helper does LESS THAN HALF the effort. [place] lifts, holds or supports trunk or limbs, but provides less than half the effort. 2-Substantial/Maximal Assistance-helper does MORE THAN HALF the effort. [place] lifts or holds trunk or limbs and provides more than half the effort. 1-Mumsqvwuk-zicmyb does ALL the effort. Patient does none of the effort to complete the activity. Or, the assistance of 2 or more helpers is required for the patient to complete the activity. If activity was not attempted, code reason: 7-Patient Refused. 9-Not Applicable-not attempted and the patient did not perform the activity before the current illness, exacerbation or injury. 10-Not Attempted due to Environmental Limitations-(lack of equipment, weather restraints, etc.). 88-Not Attempted due to Medical Conditions or Safety Concerns. Lying to Sitting/Side of Bed(Q: 6 Sit to Stand (QC): 6 Chair/Edh-hf-Vpcsj Xfer(QC): 6 Weight Bearing Right Lower Extremity: Right Full Weight Bearing Left Lower Extremity: Left Full Weight Bearing Gait Training Distance: 250' Walk 10 feet (QC): 6 Walk 50 ft with 2 Turns(QC): 6 Walk 150 ft (QC): 6 Gait Assistive Device: FWW antalgic, difficulty with terminal left knee extension Exercises Supine Ex: Ankle pumps, Quad Set, Heel Slides, Straight leg raise Supine Reps: 15 Seated Therapy Exercises: Long arc quads Seated Reps: 15 Assessment Patient tolerated treatment well and is up in recliner with needs met. Patient has difficulty with terminal left knee extension. Plan dismissal tomorrow after therapy. PT Tooth Cutter Contact Wheel Goals Fdc Goals PT Fdc Goals Time Frame: Sep 30, 2022 Roll Left & Right (QC): 6 Sit to Lying (QC): 6 Lying-Sitting on Side/Bed(QC): 6 Sit to Stand (QC): 6 Chair/Gdy-qv-Ehlty Xfer(QC): 6 Toilet Transfer (QC): 6 Car Transfer (QC): 6 Does the Patient Walk: Yes Walk 10 feet (QC): 6 Walk 50ft with 2 Turns (QC): 6 Walk 150 ft (QC): 6 1 Step (curb) (QC): 4 4 Steps (QC): 4 12 Steps (QC): 4 PT Plan Treatment/Plan Treatment Plan: Continue Plan of Care Treatment Plan: Bed Mobility, Education, Functional Activity [place], Functional Strength, Group Therapy, Gait, Safety, Therapeutic Exercise, Transfers Treatment Duration: Sep 30, 2022 Frequency: 11 times per week Estimated Hrs Per Day: .25 hour per day Patient and/or Family Agrees t: Yes Time Time In: 1310 Time Out: 1316 DATE: Aug 31, 2022 Total Billed Treatment Time: 16 Total Billed Treatment 1 visit FA 16 min BETH LÓPEZ PT Aug 31, 2022 13:58
[2022-08-31 15:56] VITALS: BP 130/69
--- NOTE | 2022-08-31 18:18 | Progress Note - Hospitalist ---
Subjective HPI/CC On Admission Date Seen by Provider: Aug 31, 2022 Time Seen by Provider: 09:40 Jewell Garcia is a 52 year old female with PMH T2DM, HLD, GERD, OA, who presented for a scheduled TKA. She underwent her surgery with Dr. Corcoran this morning. She had some nausea and vomiting upon arriving to the floor. She is feeling better now. She denies pain. She denies shortness of breath. She is sitting on the edge of the bed. She has just arrived and so she has not yet walked. She has no other complaints or concerns. Subjective/Events-last exam She has had more nausea. She was able to walk with therapy today. She is having some pain but she is going to try not to use her pump today. Objective Exam Vital Signs Vital Signs Date Time Temp Pulse Resp B/P (MAP) Pulse Ox O2 Delivery O2 Flow Rate FiO2 08/31/22 15:56 37.8 96 16 130/69 (89) 93 Room Air 08/31/22 09:00 0.00 Capillary Refill : Less Than 3 Seconds General Appearance: No Apparent Distress, WD/WN Respiratory: Lungs Clear, No Respiratory Distress Cardiovascular: Regular Rate, Rhythm, No Murmur Gastrointestinal: Normal Bowel Sounds, Soft Extremity: Normal Inspection, No Pedal Edema Neurologic/Psychiatric: Alert, Normal Mood/Affect Skin: Normal Color, Warm/Dry Results/Procedures Lab Laboratory Tests 08/31/22 05:00 Patient resulted labs reviewed. Assessment/Plan Assessment and Plan Assess & Plan/Chief Complaint s/p TKA OA Ortho primary, Dr. Corcoran Pain regimen Bowel regimen Incentive spirometry PT/OT Antiemetics as needed T2DM Holding home meds Sliding scale insulin GERD HLD Post-menopausal Continue home meds as able DVT prophylaxis: Lovenox Diagnosis/Problems Diagnosis/Problems (1) Osteoarthritis of left knee Status: Acute Qualifiers: Osteoarthritis type: primary Qualified Codes: M17.12 - Unilateral primary osteoarthritis, left knee (2) S/P total knee arthroplasty Status: Acute Qualifiers: Laterality: left Qualified Codes: Z96.652 - Presence of left artificial knee joint (3) T2DM (type 2 diabetes mellitus) Status: Chronic Qualifiers: Diabetes mellitus snf insulin use: without adjunct faculty for medical terminology use Diabetes mellitus complication status: with hyperglycemia Qualified Codes: E11.65 - Type 2 diabetes mellitus with hyperglycemia (4) HLD (hyperlipidemia) Status: Chronic (5) GERD (gastroesophageal reflux disease) Status: Chronic (6) Post-menopausal Status: Chronic VALERIA DODSON MD Aug 31, 2022 18:18
[2022-08-31 20:05] VITALS: BP_SYST 119; BP_SYST 129; BP_DIAS 76
[2022-08-31] MEDS: AtorvaSTATin TABLET 10 MG TABLET PO SCH (20:18)
--- NOTE | 2022-08-31 22:22 | DISCHARGE SUMMARY ---
DIAGNOSES: 1. Left knee primary osteoarthritis. 2. Diabetes mellitus. PROCEDURE: Left total knee arthroplasty. SUMMARY: The patient is a 52-year-old female who underwent a left total knee arthroplasty on the day of admission. Postoperatively, she did well. At the time of discharge, the wound was clean and dry. She had no calf tenderness. Negative Homans sign. She was tolerating a diet well and tolerating pain with oral pain medication. CONDITION AT DISCHARGE: Good. DISCHARGE DIET: Regular. FOLLOWUP: Followup is in 3 weeks. ACTIVITIES: Weightbearing as tolerated with a walker. DISCHARGE MEDICATIONS: Home medications plus one aspirin per day for 30 days and Percocet as needed for pain. Job ID: [id number] DocumentID: [id number] Dictated Date: 08/31/2022 08:00:49 Asbestos Coverer Date: 08/31/2022 22:20:00 Dictated By: CODIE PINEDA MD
[2022-08-31 23:08] VITALS: BP 121/75
[2022-09-01] MEDS: oxyCODONE/APAP 5/325MG (PERCOCET 5) TABLET PO PRN ×3 (01:12→08:11)
[2022-09-01 03:10] VITALS: BP 111/77
[2022-09-01 04:29] VITALS: BP 116/57
[2022-09-01] MEDS: inSUlin ASPART (NovoLOG) 1 UNIT/0.01 ML (CHARGE PER UNIT) SC SCH (05:17)
[2022-09-01 06:05] LABS: HEMOGLOBIN 9.7 g/dL (11.5-16.0)
--- NOTE | 2022-09-01 07:06 | Progress Note ---
Standard Progress Note Progress Notes/Assess & Plan Date Seen by a Provider: Sep 01, 2022 Time Seen by a Provider: 07:06 Progress/Assessment & Plan post op check no complaints radiographs--HW well positioned without fracture LLE--2 plus DP with brisk cap refill sensation intact to light touch throughout intact DF and PF of toes and ankle s/p LTKA mobilize as able Final Diagnosis no complaints Laboratory Tests Test 08/31/22 11:03 08/31/22 15:45 08/31/22 21:14 09/01/22 05:07 Range/Units Glucometer 204 H 203 H 205 H 70-110 MG/DL Hemoglobin 9.7 L 11.5-16.0 g/dL Hematocrit 30 L 35-52 % Test 09/01/22 05:12 Range/Units Glucometer 172 H 70-110 MG/DL Vital Signs Date Time Temp Pulse Resp B/P (MAP) Pulse Ox O2 Delivery O2 Flow Rate FiO2 09/01/22 04:29 37.4 110 18 116/57 (76) 97 Room Air 09/01/22 03:10 38.2 112 18 111/77 (88) 99 Room Air 0.00 0.00 08/31/22 23:08 37.4 99 18 121/75 (90) 98 Room Air 0.00 0.00 08/31/22 20:15 Room Air 08/31/22 20:05 37.6 106 18 129/76 (93) 100 Room Air 08/31/22 15:56 37.8 96 16 130/69 (89) 93 Room Air 08/31/22 11:52 36.5 106 20 154/71 (98) 99 Room Air 08/31/22 09:00 98 Room Air 0.00 08/31/22 08:25 36.2 93 20 122/61 (81) 98 Room Air I & O 09/01/22 07:00 Intake Total 2680 ml Balance 2680 ml incision clean and dry no calf tenderness neg Cassidy's s/p LTKA doing well DC home after PT today CODIE PINEDA MD Sep 01, 2022 07:06
[2022-09-01] MEDS ORDERED: morphine INJ 4 MG/ML 1 ML (VIAL/SYRINGE) IVP PRN (07:15)
[2022-09-01 08:07] VITALS: BP 121/75
[2022-09-01] MEDS: ENOXAPARIN INJECTION 30 MG/0.3 ML SYR SC SCH (08:10)
[2022-09-01] MEDS: PANTOPRAZOLE 20 MG TABLET (PROTONIX) PO SCH (08:10)
[2022-09-01] MEDS: ASPIRIN E.C. 81 MG (ECOTRIN) TAB PO SCH (08:10)
[2022-09-01] MEDS: PARoxetine 10 MG (PAXIL) TAB PO SCH (08:10)
--- NOTE | 2022-09-01 10:42 | Physical Therapy Daily Note ---
PT Daily Note-Current Subjective Patient ambulating from the BR upon PT arrival, agreeable to treatment. Rates pain 3/10 Pain Section J - Health Conditions 1. Rarely or not at all 2. Occasionally 3. Frequently 4. Almost constantly 8. Unable to answer Pain Effect on Sleep: 2 Pain Interference with Therapy: 2 Pain Interference w/Day-to-Day: 2 Mental Status Patient Orientation: Person, Place, Time, Situation Transfers SCALE: Activities may be completed with or without assistive devices. 4-Nmenvzbekd-nuwvioz completes the activity by him/herself with no assistance from a helper. 5-Set-up or Clean-up Assistance-helper sets up or cleans up; patient completes activity. [place] assists only prior to or following the activity. 4-Supervision or Touching Assistance-helper provides verbal cues and/or touching/steadying and/or contact guard assistance as patient completes activity. Assistance may be provided throughout the activity or intermittently. 3-Partial/Moderate Assistance-helper does LESS THAN HALF the effort. [place] lifts, holds or supports trunk or limbs, but provides less than half the effort. 2-Substantial/Maximal Assistance-helper does MORE THAN HALF the effort. [place] lifts or holds trunk or limbs and provides more than half the effort. 6-Kyngxlwdy-nrdjop does ALL the effort. Patient does none of the effort to c omplete the activity. Or, the assistance of 2 or more helpers is required for the patient to complete the activity. If activity was not attempted, code reason: 7-Patient Refused. 9-Not Applicable-not attempted and the patient did not perform the activity before the current illness, exacerbation or injury. 10-Not Attempted due to Environmental Limitations-(lack of equipment, weather restraints, etc.). 88-Not Attempted due to Medical Conditions or Safety Concerns. Roll Left & Right (QC): 6 Sit to Lying (QC): 6 Lying to Sitting/Side of Bed(Q: 6 Sit to Stand (QC): 6 Chair/Zgr-ag-Kvboq Xfer(QC): 6 Toilet Transfer (QC): 6 Weight Bearing Right Lower Extremity: Right Full Weight Bearing Left Lower Extremity: Left Full Weight Bearing Gait Training Does the Patient Walk?: Yes Distance: 350 feet Walk 10 feet (QC): 6 Walk 50 ft with 2 Turns(QC): 4 Walk 150 ft (QC): 4 Gait Assistive Device: FWW Assessment Current Status: Good Progress Patient performs all bed mobility and transfers with independence. Patient ambulates 350 feet with FWW, with independence. Patient does request one sitting rest break due to fatigue with ~50 feet left to room. Patient ambulates with increased loss of left TKE to ~30 degrees during stance this treatment session. Patient was educated on the benefit of improving knee extension for functional activities, but mostly to ambulate properly with appropriate LE mechanics. Patient in chair post treatment with all needs met, nursing notified, call light in hand. PT Glass Processing Worker Goals Mcfp Goals PT Mcfp Goals Time Frame: Sep 30, 2022 Roll Left & Right (QC): 6 Sit to Lying (QC): 6 Lying-Sitting on Side/Bed(QC): 6 Sit to Stand (QC): 6 Chair/Yhy-oc-Iankc Xfer(QC): 6 Toilet Transfer (QC): 6 Car Transfer (QC): 6 Does the Patient Walk: Yes Walk 10 feet (QC): 6 Walk 50ft with 2 Turns (QC): 6 Walk 150 ft (QC): 6 1 Step (curb) (QC): 4 4 Steps (QC): 4 12 Steps (QC): 4 PT Plan Treatment/Plan Treatment Plan: Continue Plan of Care Treatment Plan: Bed Mobility, Education, Functional Activity [place], Functional Strength, Group Therapy, Gait, Safety, Therapeutic Exercise, Transfers Treatment Duration: Sep 30, 2022 Frequency: 11 times per week Estimated Hrs Per Day: .25 hour per day Patient and/or Family Agrees t: Yes Safety Risks/Education Patient Education: Gait Training, Transfer Techniques Teaching Recipient: Patient Teaching Methods: Demonstration, Discussion Response to Teaching: Verbalize Understanding, Return Demonstration Time Time In: 924 Time Out: 949 DATE: Sep 01, 2022 Total Billed Treatment Time: 25 Total Billed Treatment Visit, Gait (2) VIVIAN SANTOS PT Sep 01, 2022 10:42
--- NOTE | 2022-09-01 14:33 | Progress Note - Hospitalist ---
Subjective HPI/CC On Admission Date Seen by Provider: Sep 01, 2022 Time Seen by Provider: 09:40 Jewell Garcia is a 52 year old female with PMH T2DM, HLD, GERD, OA, who presented for a scheduled TKA. She underwent her surgery with Dr. Corcoran this morning. She had some nausea and vomiting upon arriving to the floor. She is feeling better now. She denies pain. She denies shortness of breath. She is sitting on the edge of the bed. She has just arrived and so she has not yet walked. She has no other complaints or concerns. Subjective/Events-last exam She is feeling well. She denies pain. She is ready to go. She is asking for her IV to be taken out. Objective Exam Vital Signs Vital Signs Date Time Temp Pulse Resp B/P (MAP) Pulse Ox O2 Delivery O2 Flow Rate FiO2 09/01/22 10:20 09/01/22 10:00 109 09/01/22 09:00 Room Air 09/01/22 08:07 37.9 20 100 09/01/22 03:10 0.00 0.00 Capillary Refill : Less Than 3 Seconds General Appearance: No Apparent Distress, WD/WN Respiratory: No Accessory Muscle Use, No Respiratory Distress Gastrointestinal: No Distended Extremity: Normal Inspection, No Pedal Edema; No Inflammation Neurologic/Psychiatric: Alert, Oriented x3, Normal Mood/Affect Skin: Normal Color Results/Procedures Lab Laboratory Tests 09/01/22 05:07 Patient resulted labs reviewed. Assessment/Plan Assessment and Plan Assess & Plan/Chief Complaint s/p TKA OA Ortho primary, Dr. Corcoran Pain regimen Bowel regimen Incentive spirometry PT/OT Antiemetics as needed Planning for discharge home today T2DM GERD HLD Post-menopausal Resume home meds DVT prophylaxis: Lovenox Diagnosis/Problems Diagnosis/Problems (1) Osteoarthritis of left knee Status: Acute Qualifiers: Osteoarthritis type: primary Qualified Codes: M17.12 - Unilateral primary osteoarthritis, left knee (2) S/P total knee arthroplasty Status: Acute Qualifiers: Laterality: left Qualified Codes: Z96.652 - Presence of left artificial knee joint (3) T2DM (type 2 diabetes mellitus) Status: Chronic Qualifiers: Diabetes mellitus terminal supervisor insulin use: without fpc use Diabetes mellitus complication status: with hyperglycemia Qualified Codes: E11.65 - Type 2 diabetes mellitus with hyperglycemia (4) HLD (hyperlipidemia) Status: Chronic (5) GERD (gastroesophageal reflux disease) Status: Chronic (6) Post-menopausal Status: Chronic VALERIA DODSON MD Sep 01, 2022 14:33
== END 2022-09-01 10:10 | disposition home health service (06) | DRG 470 ==
LOC: 4TH 05:56 → SURG 05:57 → 4TH 10:00
PROVIDERS: ADMIT Orthopaedic Surgery; ATTEND Orthopaedic Surgery
PROC: 0SRD0J9 Replacement of Left Knee Joint with Synthetic Substitute, Cemented, Open Approach (ICD-10-PCS; principal; 2022-08-30 07:37)
DX: M17.12 Unilateral primary osteoarthritis, left knee (principal); E11.9 Type 2 diabetes mellitus without complications; K21.9 Gastro-esophageal reflux disease without esophagitis; E78.00 Pure hypercholesterolemia, unspecified; G43.909 Migraine, unspecified, not intractable, without status migrainosus; F41.9 Anxiety disorder, unspecified; Z78.0 Asymptomatic menopausal state
CPT/HCPCS: 36415; 73560; 82947; 85014; 85018; 86850; 86900; 86901; 87081; 93005

== ENCOUNTER 2022-09-29 10:45 | Outpatient (RCR) | payer BC ==
--- NOTE | 2022-08-31 13:31 | Anesthesia-General Post-Op ---
General Patient Condition Mental Status/LOC: Same as Preop Cardiovascular: Satisfactory Nausea/Vomiting: Absent Respiratory: Satisfactory Pain: Controlled Complications: Absent Post Op Complications Complications None Follow Up Care/Instructions Patient Instructions None needed. Anesthesia/Patient Condition Patient Condition Patient is doing well, no complaints, stable vital signs, no apparent adverse anesthesia problems. No complications reported per nursing. CELSA GARCIA CRNA Aug 31, 2022 13:31
[~2022-09-29 10:45] MED LIST changes: +DAPA10TA PO; +DICL50TA6 PO; +DOCU100C37 PO; +MULT-1136 PO; +OXYC1TAB11 PO
== END 2022-10-01 | disposition home or self-care (01) ==
PROVIDERS: ATTEND Orthopaedic Surgery
DX: Z47.1 Aftercare following joint replacement surgery (principal); Z96.652 Presence of left artificial knee joint

== ENCOUNTER 2022-10-20 08:05 | Outpatient (RCR) | payer BC | END 2022-11-01 | disposition home or self-care (01) | PROVIDERS: ATTEND Orthopaedic Surgery | DX: Z47.1 Aftercare following joint replacement surgery (principal); Z96.652 Presence of left artificial knee joint; M25.562 Pain in left knee; R26.89 Other abnormalities of gait and mobility ==

== ENCOUNTER → 2022-11-16 | Outpatient (CLI) | payer BC ==
--- NOTE | 2022-11-16 09:07 | Diagnostic Imaging Report ---
INDICATION: Routine screening. Comparison is made with prior mammogram from 06/10/2018. 2-D and 3-D bilateral screening mammography was performed with CAD. Both breasts are heterogeneously dense, limiting the sensitivity of mammography. A previous mammogram from 2019 did recommend a diagnostic mammogram with additional views for density in the upper outer right breast. Reportedly this was not performed. This density does persist and is indeterminate. Additional views would be recommended. There is also a density in the outer aspect of the left breast which appears more prominent. Additional views would be recommended of this area as well. There are scattered benign calcifications. No malignant-appearing microcalcifications are seen. Axillae are unremarkable. IMPRESSION: Bilateral breast densities. Additional views recommended for further evaluation. ACR BI-RADS Category 0: Incomplete. (Needs additional imaging evaluation). Result letter will be mailed to the patient. Note: At least 10% of breast cancer is not imaged by mammography. BI-RADS 0 Dictated by: Dictated on workstation # [id number]
== END ==
LOC: RAD 07:26
PROVIDERS: ATTEND Family Medicine
DX: Z12.31 Encounter for screening mammogram for malignant neoplasm of breast (principal)
CPT/HCPCS: 77063; 77067

== ENCOUNTER → 2022-11-23 | Outpatient (CLI) | payer BC ==
--- NOTE | 2022-11-23 09:26 | Diagnostic Imaging Report ---
Indication: Bilateral breast densities. Patient presents for additional views. Comparison is made with recent screening study from 11/16/2022. 2-D and 3-D bilateral diagnostic mammography was performed. This included spot compression CC and spot compression ML views bilaterally. In addition, bilateral 90 degree lateral views were performed. There are persistent densities in the upper and outer aspects of both breasts at posterior depth approximately 8 to 9 cm from the nipple. Further evaluation of these areas with ultrasound is recommended. No suspicious microcalcifications are identified. IMPRESSION: BI-RADS 0 Persistent nodular densities in the upper outer aspects of both breasts posteriorly. Further evaluation with ultrasound is recommended and will be performed today. ACR BI-RADS Category 0: Incomplete. (Needs additional imaging evaluation). Result letter will be mailed to the patient. Note: At least 10% of breast cancer is not imaged by mammography. Dictated by: Dictated on workstation # [id number]
--- NOTE | 2022-11-23 12:02 | Diagnostic Imaging Report ---
INDICATION: Abnormal mammogram CORRELATION is made with diagnostic mammogram earlier today as well as screening mammogram from 11/16/2022. Left breast does contain somewhat ovoid, lobulated hypoechoic nodule at the 2:00 location, 8 cm from the nipple. This measures approximately 1.4 x 0.6 x 0.7 cm. This may account for the density noted mammographically. On the right, there is a somewhat ovoid lobulated nodule as well which appears solid at the 10:00 location, 8 cm from the nipple measuring 1.0 x 0.4 x 1.0 cm. This may account for the area of nodularity noted mammographically. No other sonographic abnormality is identified. IMPRESSION: BI-RADS Category 4 Bilateral breast nodules, likely accounting for the mammographic densities. These are indeterminate. Tissue sampling would be recommended. These would be amenable to ultrasound-guided core biopsy. ACR BI-RADS Category 4: Suspicious abnormality. Result letter will be mailed to the patient. Note: At least 10% of breast cancer is not imaged by mammography. Dictated by: Dictated on workstation # [id number]
== END ==
LOC: RAD 08:25
PROVIDERS: ATTEND Nurse Practitioner Family
DX: N63.21 Unspecified lump in the left breast, upper outer quadrant (principal); N63.11 Unspecified lump in the right breast, upper outer quadrant
CPT/HCPCS: 76642; 77066; G0279; 77062

== ENCOUNTER → 2022-11-30 | Outpatient (CLI) | payer BC ==
[~2022-11-30] VITALS: Ht 170.8 cm; Wt 84.5 kg
[~2022-11-30] MED LIST changes: +LIDOCAINE 1% INJ 10 ML VIAL INJ ONE; +LIDOCAINE 1% INJ 10 ML VIAL ONE
--- NOTE | 2022-11-30 12:02 | Diagnostic Imaging Report ---
Indication: Left breast nodule. Patient presents for ultrasound-guided core biopsy. Patient brought to the sonographic suite placed on table in the supine position. Ultrasound imaging of the left breast was performed to evaluate appropriate entry site. Left breast was prepped and draped in usual sterile fashion. Small amount 1% lidocaine was utilized for local anesthesia. Multiple core biopsies were obtained of the lobulated hypoechoic nodule at the 2:00 location of the left breast utilizing the 14-gauge achieve needle. A marker clip was then deployed. Needle was removed and hemostasis was obtained. Patient tolerated the procedure well and sent for postprocedure mammogram in satisfactory condition. IMPRESSION: Successful ultrasound-guided core biopsy of the lobulated solid nodule 2:00 location left breast. Pathology results are currently pending. Dictated by: Dictated on workstation # [id number]
--- NOTE | 2022-11-30 12:11 | Diagnostic Imaging Report ---
INDICATION: Right breast nodule. Patient presents for ultrasound-guided core biopsy. Patient brought to the sonographic suite placed on table in the supine position. Ultrasound imaging of the right breast was performed to evaluate appropriate entry site. Right breast was then prepped and draped in the usual sterile fashion. Small amount 1% lidocaine was utilized for local anesthesia. Multiple core biopsies were obtained of the hypoechoic ovoid nodule at the 10:00 location of the right breast utilizing 14-gauge achieve needle. A marker clip was then deployed. The needle was removed and hemostasis was obtained. Patient tolerated procedure well and was sent for post procedure mammogram in satisfactory condition. IMPRESSION: Successful ultrasound guided core biopsy of the ovoid hypoechoic nodule 10:00 location right breast. Pathology results are currently pending. Dictated by: Dictated on workstation # [id number]
--- NOTE | 2022-12-01 10:52 | Diagnostic Imaging Report ---
INDICATION: Bilateral breast nodules. Patient is status post ultrasound-guided biopsy of nodules in the upper and outer aspects of both breasts. Bilateral 2D CC and mediolateral mammography were performed after patient underwent ultrasound-guided biopsy. Images demonstrate marker clips in the upper and outer aspects of both breast at posterior depth. IMPRESSION: Marker clip placements, status post ultrasound-guided biopsy. Dictated by: Dictated on workstation # [id number]
== END ==
LOC: RAD 10:45
PROVIDERS: ATTEND Family Medicine
DX: N63.11 Unspecified lump in the right breast, upper outer quadrant (principal); N63.21 Unspecified lump in the left breast, upper outer quadrant
CPT/HCPCS: 19083 ×2; 77066; G0279; 77062

== ENCOUNTER 2023-01-03 08:30 | Outpatient (CLI) | payer BC ==
[~2023-01-03] VITALS: Ht 170.2 cm; Wt 75.5 kg
[~2023-01-03 08:30] MED LIST changes: -LIDOCAINE 1% INJ 10 ML VIAL INJ ONE; -LIDOCAINE 1% INJ 10 ML VIAL ONE
[2023-01-03 09:14] LABS: BILIRUBIN,URINE NEGATIVE (NEGATIVE); CLARITY,URINE CLEAR; COLOR,URINE YELLOW; GLUCOSE, URINE (UA) 3+ (NEGATIVE); KETONES,URINE NEGATIVE (NEGATIVE); LEUKOCYTE ESTERASE ,URINE NEGATIVE (NEGATIVE); NITRITE,URINE NEGATIVE (NEGATIVE); PROTEIN,URINE NEGATIVE (NEGATIVE)
[2023-01-03 09:21] LABS: BACTERIA,URINE NEGATIVE /HPF
[2023-01-03 09:22] VITALS: BP 107/68
[2023-01-03 10:28] LABS: BASOPHILS % (AUTO) 1 % (0-10); EOSINOPHILS # (AUTO) 0.1 10^3/uL (0.0-0.3); EOSINOPHILS % (AUTO) 2 % (0-10); HEMATOCRIT 41 % (35-52); HEMOGLOBIN 13.5 g/dL (11.5-16.0); LYMPHOCYTES # (AUTO) 1.8 10^3/uL (1.0-4.0); LYMPHOCYTES % (AUTO) 32 % (12-44); MEAN CORPUSCULAR HEMOGLOBIN 27 pg (25-34); MEAN CORPUSCULAR HGB CONC 33 g/dL (32-36); MEAN CORPUSCULAR VOLUME 83 fL (80-99); MEAN PLATELET VOLUME 11.7 fL (9.0-12.2); MONOCYTES # (AUTO) 0.2 10^3/uL (0.0-1.0); MONOCYTES % (AUTO) 4 % (0-12); NEUTROPHILS # (AUTO) 3.3 10^3/uL (1.8-7.8); NEUTROPHILS % (AUTO) 60 % (42-75); PLATELET COUNT 176 10^3/uL (130-400); WHITE BLOOD COUNT 5.6 10^3/uL (4.3-11.0)
[2023-01-03 10:39] LABS: INR 0.9 (0.8-1.4); PROTHROMBIN TIME PATIENT 12.3 SEC (12.2-14.7)
[2023-01-03 10:51] LABS: ALBUMIN 4.5 GM/DL (3.2-4.5); POTASSIUM 3.8 MMOL/L (3.6-5.0)
[2023-01-03 10:53] LABS: CALCIUM 10.3 MG/DL (8.5-10.1)
[2023-01-03 10:54] LABS: TOTAL PROTEIN 7.7 GM/DL (6.4-8.2)
[2023-01-03 10:56] LABS: BILIRUBIN,TOTAL 0.4 MG/DL (0.1-1.0)
[2023-01-03 10:57] LABS: CREATININE SERUM 0.78 MG/DL (0.60-1.30)
--- NOTE | 2023-01-03 12:17 | Diagnostic Imaging Report ---
EXAMINATION: Chest 2 view HISTORY: Preoperative exam. COMPARISON: 07/25/2022 FINDINGS: The lungs are clear without edema or pneumonia. No pleural effusion or pneumothorax. Heart size is normal. IMPRESSION: 1. Clear lungs. Dictated by: Dictated on workstation # [id number]
--- NOTE | 2023-01-03 15:23 | Physical Therapy Ortho Eval ---
PT Orthopedic Evaluation Type of Surgery Prior Level of Function Current Living Status: Spouse Locomotion (Upon Admit): Independent Established Durable Medical Eq: Front Wheeled Walker Subjective Subjective Patient ambulating out of the BR upon PT arrival, agreeable to treatment. Patient rates pain currently at 3/10 in the right knee. Entry Into Home: Stairs With Railing Steps Into Home: 8 Steps Inside Home: 16 Steps Accessories: Railing Present Motor Control Motor Control: Motor Control WNL ROM ROM: WFL, except focal deficit Strength Strength: Gen Weak,No Focal Deficit Transfer SCALE: Activities may be completed with or without assistive devices. 6-Wytaexwihg-vfzdqhj completes the activity by him/herself with no assistance from a helper. 5-Set-up or Clean-up Assistance-helper sets up or cleans up; patient completes activity. [place] assists only prior to or following the activity. 4-Supervision or Touching Assistance-helper provides verbal cues and/or touching/steadying and/or contact guard assistance as patient completes activity. Assistance may be provided throughout the activity or intermittently. 3-Partial/Moderate Assistance-helper does LESS THAN HALF the effort. [place] lifts, holds or supports trunk or limbs, but provides less than half the effort. 2-Substantial/Maximal Assistance-helper does MORE THAN HALF the effort. [place] lifts or holds trunk or limbs and provides more than half the effort. 9-Mawnvzvax-gtlsqq does ALL the effort. Patient does none of the effort to complete the activity. Or, the assistance of 2 or more helpers is required for the patient to complete the activity. If activity was not attempted, code reason: 7-Patient Refused. 9-Not Applicable-not attempted and the patient did not perform the activity before the current illness, exacerbation or injury. 10-Not Attempted due to Environmental Limitations-(lack of equipment, weather restraints, etc.). 88-Not Attempted due to Medical Conditions or Safety Concerns. Transfers (B, C, W/C) (QC): 6 Gait Gait Assistive Device: None Right Lower Extremity: Right Weight Bearing Status RLE: Full Weight Bearing Left Lower Extremity: Left Weight Bearing Status LLE: Full Weight Bearing Stairs #of Steps: 8 Walking Assistive Device: Walker Assessment/Goals Goal Time Frame: 1 Visit Understands HEP: Yes Safe Ambulation: Yes Plan Treatment Plan: Discharge Time Time In: 900 Time Out: 915 Total Billed Treatment Time: 15 Billed Treatment Time Visit, VIVIAN DANIEL PT Jan 03, 2023 15:23
== END 2023-01-03 16:09 ==
LOC: PREOP 08:30
PROVIDERS: ATTEND Orthopaedic Surgery
DX: Z01.818 Encounter for other preprocedural examination (principal); M17.11 Unilateral primary osteoarthritis, right knee
CPT/HCPCS: 36415; 71046; 80053; 81000; 85025; 85610; 86850; 86900; 86901; 87081; 93005

== ENCOUNTER 2023-01-10 05:50 | Inpatient (IN) | payer BC ==
[~2023-01-10] VITALS: Ht 170 cm; Wt 75.5 kg
[2023-01-10] VITALS (12 sets, daily range): BP systolic 108–123; BP diastolic 60–75
[2023-01-10] MEDS ORDERED: CLINDAMYCIN 600 MG/50 ML IVPB 50 ML IV ONE (06:45)
[2023-01-10] MEDS ORDERED: MIDAZOLAM 2 MG/2 ML (VERSED) VIAL ONE (07:10)
[2023-01-10] MEDS ORDERED: BUPIVACAINE 0.5% 30 ML VIAL ONE (07:10)
[2023-01-10] MEDS ORDERED: PROPOFOL INJECTION 50 ML IV ONE ×2 (07:10→08:19)
[2023-01-10] MEDS ORDERED: TEMAZEPAM 15 MG (RESTORIL) CAP PO PRN (07:15)
[2023-01-10] MEDS ORDERED: morphine INJ 4 MG/ML 1 ML (VIAL/SYRINGE) IVP PRN (07:15)
[2023-01-10] MEDS ORDERED: ONDANSETRON 4 MG/2 ML (SDV) Z0FRAN IV PRN (07:15)
[2023-01-10] MEDS: LACTATED RINGERS 1,000 ML IV PRN ×2 (07:19→08:15)
--- NOTE | 2023-01-10 07:25 | Progress Note-Pre Operative ---
Pre-Operative Progress Note Date of Available H&P: Dec 28, 2022 Date H&P Reviewed: Jan 10, 2023 Time H&P Reviewed: 07:11 Changes from last HP none Pre-Operative Diagnosis: right knee primary osteoarthritis CODIE PINEDA MD Jan 10, 2023 07:25
--- NOTE | 2023-01-10 07:25 | Progress Note-Post Operative ---
Post-Operative Progess Note Surgeon (s)/Bore Miner Operator (s) Surgeon CODIE PINEDA MD Bore Miner Operator: Abilio Bunch Pre-Operative Diagnosis right knee primary osteoarthritis Post-Operative Diagnosis right knee primary osteoarthritis Procedure & Operative Findings Date of Procedure 01/10/23 Procedure Performed/Findings right total knee arthroplasty Anesthesia Type spinal Estimated Blood Loss Estimated blood loss (mL): minimal Specimens/Packing Specimens Removed none Packing: none CODIE PINEDA MD Jan 10, 2023 07:25
--- NOTE | 2023-01-10 07:28 | D/C HH Face to Face Order ---
D/C Face to Face Orders Reconcile Patient Problems Problems Reviewed?: Yes Instructions for Patient Via [facility] [place] [employer], Patient Instructions/FollowUp: three weeks Physician to follow Patient: three weeks Discharge Diet for Home: Regular Diet Patient Data-Allergies,Ht & Wt Patient Allergies: Coded Allergies: Penicillins (Verified Allergy, Unknown, UNKNOWN CHILD; PT TOLERATED CEFUROXIME, 01/03/23) codeine (Verified Allergy, Unknown, ITCHY; PT TOLERATED MORPHINE AND DILUADID, 01/03/23) Uncoded Allergies: METAL (Allergy, Unknown, ALL EXCEPT TITANIUM, 07/12/22) Home Health Need/Face to Face Date of Face to Face: Jan 10, 2023 Clinical Findings: Muscle weakness, Pain with ambulation, Unsteady gait I have seen Pt ijcm-qo-boze: Yes Discharged To: Home Diagnosis/Conditions: right total knee arthroplasty Patient is Homebound due to: Muscle weakness, Pain w/ambulation Homebound Status Due to the above stated illness, injury or surgical procedure (medical condition or diagnosis) and associated clinical findings, the patient is homebound because of his/her inability to leave home except with aid of a supportive device and/or person AND leaving the home requires a considerable and taxing effort or is medically contraindicated. Pt req the following assistanc: Walker Home Health Nursing Orders Home Health Services Order: Physical Therapy-Evaluate & Treat DC right knee roopa and apply steri strips 01/24/23 Home Health Infusion Therapy Line Start Date: Jan 10, 2023 Therapy Orders Therapy Orders: Physical Therapy, PT to assess for OT Therapy Specific Orders: Eval assistive deivces, Teach enviro modificatio ns/safety, Gait training, Increase strength/endurance, Provider maintenance therapy, Restore ROM Certify Stmt I certify that this patient is under my care and that I, a nurse practitioner or a physician; a medical assistant prn working with me, had a face to face encounter that - meets the physician face to face encounter requirements with this patient as dated. CODIE PINEDA MD Jan 10, 2023 07:27
[2023-01-10] MEDS ORDERED: INTRA-ARTICULAR IU ONE ×5 (07:30)
[2023-01-10] MEDS ORDERED: TRANEXAMIC ACID 100 MG/ML 10 ML INJECTION ONE (07:39)
[2023-01-10] MEDS ORDERED: CELECOXIB 100 MG CAPSULE PO SCH (09:00)
[2023-01-10] MEDS ORDERED: MEPERIDINE (DEMEROL) INJ 50 MG/ML IVP ONE (09:30)
[2023-01-10] MEDS ORDERED: morphine INJ 10 MG/ML 1ML (SYR OR VIAL) IVP ONE (09:30)
[2023-01-10] MEDS ORDERED: ONDANSETRON 4 MG/2 ML (SDV) Z0FRAN IVP PRN (09:30)
[2023-01-10] MEDS ORDERED: morphine INJ 10 MG/ML 1ML (SYR OR VIAL) ONE (09:37)
--- NOTE | 2023-01-10 09:56 | Progress Note ---
Standard Progress Note Progress Notes/Assess & Plan Date Seen by a Provider: Jan 10, 2023 Time Seen by a Provider: 09:55 Progress/Assessment & Plan post op check no complaints radiographs--hw well positioned without fracture RLE--spinal in effect 2 plus DP pulse with brisk cap refill s/p RTKA mobilize when able CODIE PINEDA MD Jan 10, 2023 09:56
--- NOTE | 2023-01-10 10:16 | Diagnostic Imaging Report ---
INDICATION: Postoperative Knee Arthroplasty TECHNIQUE: 2 portable post operative radiographs of the right knee, 9:40 AM CORRELATION STUDY: None FINDINGS: There are postsurgical changes of a total knee arthroplasty. Alignment is anatomic. Installed hardware appearing unremarkable. Overlying soft tissue gas collections and skin roopa are present. IMPRESSION: Postsurgical changes of a total knee replacement. Dictated by: Dictated on workstation # [id number]
[2023-01-10] MEDS ORDERED: ACETAMINOPHEN 500 MG TABLET PO PRN (11:00)
[2023-01-10] MEDS: NS IV 1000 ML 1,000 ML IV SCH ×2 (11:20→22:50)
--- NOTE | 2023-01-10 11:23 | Consultation - Hospitalist ---
HPI History of Present Illness: HPI/Chief Complaint Patient is a 52-year-old female with past medical history of agi-cuhopex-leduxaaba diabetes type 2, hyperlipidemia, osteoarthritis who was admitted for TKA by Dr. Nunez. I am consulted for medical management. She is still kind of sleepy from anesthesia and complained of a headache to her nurse but denies it for me. She does complain of some nausea but does not want anything at this time and thinks it will resolve with time. Her only concern for me is getting started on an antifungal as she states she gets frequent yeast infections when on antibiotics. Source: patient Date Seen 01/10/23 Attending Physician Pradeep Adkins MD PCP Admitting Physician: Rahul Corcoran MD Attending Physician: Rahul Corcoran MD Referring Physician Date of Admission Jan 10, 2023 at 05:50 Home Medications & Allergies Home Medications Reviewed patient Home Medication Reconciliation performed by pharmacy medication reconciliations airplane technician and/or nursing. Patients Allergies have been reviewed. Allergies Allergies Coded Allergies Penicillins (Verified Allergy, Unknown, UNKNOWN CHILD; PT TOLERATED CEFUROXIME, 01/03/23) codeine (Verified Allergy, Unknown, ITCHY; PT TOLERATED MORPHINE AND DILUADID, 01/03/23) Uncoded Allergies METAL ( Allergy, Unknown, ALL EXCEPT TITANIUM, 07/12/22) Past Ncfessk-Zisfai-Sovflk Hx Patient Social History Tobacco Use?: No Substance use?: No Alcohol Use?: No Pt feels they are or have been: No Immunizations Up To Date Date of Influenza Vaccine: Mar 10, 2022 First/Initial COVID19 Vaccinat: 06/12/20 Second COVID19 Vaccination Moshe: 07/02/20 Tetanus Booster (TDap): Unknown Hepatitis B: Yes Seasonal Allergies Seasonal Allergies: Yes Current Status Advance Directives: No Communicates: Verbally Primary Language: Turkish Is interpretation needed?: No Sensory deficits: Vision impairment Implanted or Applied Medical D: None Past Medical History Surgeries: Section, Orthopedic Asthma Currently Using CPAP: No Currently Using BIPAP: No High Cholesterol Headaches /Migraines Sexually Transmitted Disease: No HIV/AIDS: No Bladder Infection Gastroesophageal Reflux Fractures Diabetes, Non-Insulin dep Cataract Loss of Vision: Denies Hearing Impairment: Denies What Type of Treatment Did You: Chemotherapy, Surgical Intervention Anxiety Psoriasis Blood Disorders: No Adverse Reaction/Blood Tranf: No Family Medical History No Pertinent Family Hx Review of Systems Constitutional: see HPI Physical Exam Physical Exam Vital Signs Vital Signs - First Documented 01/10/23 06:20 Temp 36.1 Pulse 78 Resp 18 B/P (MAP) 113/71 (85) Pulse Ox 99 O2 Delivery Room Air Capillary Refill : Less Than 3 Seconds Height, Weight, BMI Height: '" Weight: lbs. oz. kg; 26.12 BMI Method:Stated General Appearance: No Apparent Distress (drowsy), WD/WN Respiratory: Lungs Clear, No Respiratory Distress Cardiovascular: Regular Rate, Rhythm, No Murmur Gastrointestinal: Normal Bowel Sounds, Soft Extremity: Other (WILMAR hose in place, moving both legs, sensation intact though she reports as diminished, no edema noted) Neurologic/Psychiatric: Alert, Oriented x3 Results Results/Procedures Labs Patient resulted labs reviewed. Imaging: Reviewed Imaging Report [facility] [place], [place] NAME: JACKIE WILLS MED REC#: [id number] PT STATUS: ADM IN : 1970 PHYSICIAN: JOVANNI LEVY ADMIT DATE: 01/10/23 Signed Date of Exam:01/10/23 KNEE, RIGHT, 2 VIEWS INDICATION: Postoperative Knee Arthroplasty TECHNIQUE: 2 portable post operative radiographs of the right knee, 9:40 AM CORRELATION STUDY: None FINDINGS: There are postsurgical changes of a total knee arthroplasty. Alignment is anatomic. Installed hardware appearing unremarkable. Overlying soft tissue gas collections and skin roopa are present. IMPRESSION: Postsurgical changes of a total knee replacement. Dictated by: Dictated on workstation # [id number] Dict: 01/10/23 1015 Trans: 01/10/23 1015 DO [id number] Interpreted by: RICARDO GOLD DO Electronically signed by: RICARDO GOLD DO 01/10/23 1015 Assessment/Plan Assessment and Plan Assess & Plan/Chief Complaint Osteoarthritis left knee s/p TKA POD #0 Pain controlled per knee protocol Lovenox PT/OT SW consulted NIDDMII Bs 155 Accuchecks Resume home meds when med rec done HLD Resume home meds when med rec done DVT ppx: Lovenox Will round prn, please call for any needs CT THIBODEAUX MD Jan 10, 2023 11:23
[2023-01-10] MEDS: CELECOXIB 100 MG CAPSULE PO SCH (12:32)
--- NOTE | 2023-01-10 14:35 | Physical Therapy Evaluation ---
PT Evaluation-General Medical Diagnosis Admission Date Jan 10, 2023 at 05:50 Medical Diagnosis: RTKA Onset Date: Jan 10, 2023 Therapy Diagnosis Therapy Diagnosis: Gait deficit, strength deficit Precautions Precautions/Isolations: Fall Prevention, Standard Precautions Weight Bear Status Right Lower Extremity: Right Weight Bearing/Tolerated Left Lower Extremity: Left Full Weight Bearing Referral Physician: Dr. Corcoran Reason for Referral: Evaluation/Treatment Medical History Pertinent Medical History: DM Reviewed History: Yes Social History Home: Multilevel Current Living Status: Spouse Entry Into Home: Ramp PT Steps Inside Home: 16 Prior Prior Level of Function SCALE: Activities may be completed with or without assistive devices. 7-Iqpvgvdnzb-cingney completes the activity by him/herself with no assistance from a helper. 5-Set-up or Clean-up Assistance-helper sets up or cleans up; patient completes activity. [place] assists only prior to or following the activity. 4-Supervision or Touching Assistance-helper provides verbal cues and/or touching/steadying and/or contact guard assistance as patient completes activity. Assistance may be provided throughout the activity or intermittently. 3-Partial/Moderate Assistance-helper does LESS THAN HALF the effort. [place] lifts, holds or supports trunk or limbs, but provides less than half the effort. 2-Substantial/Maximal Assistance-helper does MORE THAN HALF the effort. [place] lifts or holds trunk or limbs and provides more than half the effort. 0-Oftfqnbpr-ijtvsv does ALL the effort. Patient does none of the effort to complete the activity. Or, the assistance of 2 or more helpers is required for the patient to complete the activity. If activity was not attempted, code reason: 7-Patient Refused. 9-Not Applicable-not attempted and the patient did not perform the activity before the current illness, exacerbation or injury. 10-Not Attempted due to Environmental Limitations-(lack of equipment, weather restraints, etc.). 88-Not Attempted due to Medical Conditions or Safety Concerns. Bed Mobility: 6 Transfers (B,C,W/C): 6 Gait: 6 Stairs: 6 Indoor Mobility (Ambulation): Independent Stairs: Independent Prior Devices Use: Walker PT Evaluation-Current Subjective Patient lying supine in bed upon PT arrival, agreeable to treatment. Patient rates pain at 0/10 currently and reports "I really can't feel that leg." Objective Patient Orientation: Person, Place, Time, Situation Attachments: IV ROM/Strength ROM Lower Extremities Right knee flexion 80 degrees, extension 10 degrees from neutral. All other BLEs all planes WFLs Strength Lower Extremities Right knee flexion/extension 3-/5; All other BLE motions 5/5 Sensory Vision: Functional Hearing: Functional Sensation Right Lower Extremit: Intact Sensation Left Lower Extremity: Intact Transfers Roll Left to Right (QC): 4 Sit to Lying (QC): 4 Lying to Sitting/Side of Bed(Q: 4 Sit to Stand (QC): 3 Chair/Oyy-nu-Erzao Xfer(QC): 3 Gait Does the Patient Walk?: Yes Mode of Locomotion: Walk Anticipated Mode of Locomotion: Walk Walk 10 feet (QC): 3 Distance: 3' Gait Assistive Device: FWW Balance Sitting Static: Good Sitting Dynamic: Good Standing Static: Fair Standing Dynamic: Fair Assessment/Needs Patient tolerated treatment fair. She performs all bed mobility and transfers with SBA to min A. Patient ambulates 3 feet with FWW, with min A and verbal cues for safety, posture, control of FWW. Patient nauseated upon sitting in the chair and vomited into the basin. She requests this therapist leaves while she is getting sick. Patient in chair post treatment with all needs met, call light in hand and nurse notified. Rehab Potential: Good PT Service Tester Goals Assisted Goals PT Assisted Goals Time Frame: Feb 01, 2023 Roll Left & Right (QC): 6 Sit to Lying (QC): 6 Lying-Sitting on Side/Bed(QC): 6 Sit to Stand (QC): 6 Chair/Vhd-zw-Jisgk Xfer(QC): 6 Toilet Transfer (QC): 6 Does the Patient Walk: Yes Walk 10 feet (QC): 5 Walk 50ft with 2 Turns (QC): 5 Walk 150 ft (QC): 5 1 Step (curb) (QC): 3 4 Steps (QC): 3 12 Steps (QC): 3 PT Plan Problem List Problem List: Activity Tolerance, Functional Strength, Safety, Balance, Gait, Transfer, Bed Mobility, ROM Treatment/Plan Treatment Plan: Continue Plan of Care Treatment Plan: Bed Mobility, Education, Functional Activity [place], Functional Strength, Group Therapy, Gait, Safety, Therapeutic Exercise, Transfers Treatment Duration: Feb 03, 2023 Frequency: 11 times per week Patient and/or Family Agrees t: Yes Safety Risks/Education Patient Education: Gait Training, Transfer Techniques Teaching Recipient: Patient Teaching Methods: Demonstration, Discussion Response to Teaching: Verbalize Understanding, Return Demonstration Time Time In: 1316 Time Out: 1330 DATE: Jan 10, 2023 Total Billed Treatment Time: 14 Total Billed Treatment Visit, VIVIAN AVILES PT Jan 10, 2023 14:35
--- NOTE | 2023-01-10 14:53 | OPERATIVE REPORT ---
DATE OF SERVICE: 01/10/2023 PREOPERATIVE DIAGNOSIS: Right knee primary osteoarthritis. POSTOPERATIVE DIAGNOSIS: Right knee primary osteoarthritis. PROCEDURE: Right total knee arthroplasty. SURGEON: Rahul Pineda M.D. GRADER OPERATOR: HOMAR Collins, who assisted throughout the procedure and closed the incision. ANESTHESIA: Spinal by Joseluis Gerber CRNA. TOURNIQUET TIME: Approximately 70 minutes at 300 mmHg. ESTIMATED BLOOD LOSS: Minimal. DRAINS: None. COMPLICATIONS: None. POSTOPERATIVE PLAN: Routine total knee arthroplasty protocol. The patient was transported to the recovery room awake and in stable condition. MATERIALS: MicroPort allergy-coated cemented size 3 tibia, cemented size 3 femur with a 14-mm insert with cemented size 32 patellar button. STATEMENT OF MEDICAL NECESSITY: The patient is a 52-year-old female with right knee pain. Radiographs revealed severe medial and patellofemoral arthrosis. She has undergone treatment with injections, anti-inflammatories and rest without relief. Due to functional impairment and failure to improve with conservative measures, the patient elected to proceed with surgical intervention. DESCRIPTION OF PROCEDURE: After risks and benefits of the procedure were discussed and questions were answered and informed consent was signed and placed on the chart, the operative site was confirmed in the preoperative holding area initialed by surgeon. The patient was then transferred to the operating room. After adequate levels of general endotracheal anesthetic were obtained, a timeout was called, confirming the operative site. The right lower extremity was prepped and draped in the usual sterile fashion. With the leg elevated and the knee flexed, tourniquet was inflated to 300 mmHg. Standard anterior approach was utilized. Hemostasis was obtained with cautery. A medial parapatellar arthrotomy was performed, leaving 1 cm cuff on the patella for later reattachment. A portion of fat pad was resected. Subperiosteal release was performed on the proximal medial tibia, being careful to stay on the bony surface. The ACL was resected. Intramedullary guide was passed into the femoral canal. The distal cutting block was placed. Distal cut was made. Femur sized to a size 3. The 3 cutting block was placed parallel to the epicondylar axis and cuts were made from posterior to anterior. Subperiosteal release was then carefully performed on the posterior distal femur, being careful to stay on the bony surface. Intramedullary guide was then passed into the tibia. The cutting block was placed. The drop christa transected the intermalleolar axis and cut was made. The size 3 baseplate was placed, pinned into position. The drop christa transected the intermalleolar axis. Femoral trial was placed and trochlear cut was made. A 14 mm insert ultimately was shown to have the best stability with full extension obtained, 120 degrees of flexion with gravity was easily obtained. There was no anterior/posterior or medial/lateral laxity in flexion or extension and the patella tracked well. The patella was prepared by resecting 10 mm off the undersurface. The peg guide was placed. Peg holes were drilled. The 32 trial was placed and knee was taken through range of motion with similar range of motion, findings and stability in all planes and the patella tracked well. The trials were removed. The joint was irrigated with pulse lavage. The bone ends were irrigated and dried. Tibial baseplate was cemented into position. Excessive cement was removed. The superior surface was irrigated and dried and the polyethylene insert was placed. The distal femur was irrigated and dried and the femoral prosthesis was cemented into position. Excessive cement was removed. The knee was brought out into full extension until cement had cured. The undersurface of the patella was irrigated and dried. The patellar button was cemented into position. Excessive cement was removed. This was held in full extension until cement had cured. Prior to placing the components, the periarticular block was placed in the posterior capsule, medial and lateral retinaculum, extensor mechanism and subcutaneous tissues. In addition, Irricept was used throughout the procedure using a total of 1 liter. After the cement had cured, the knee was taken through range of motion. Full extension was easily obtained; 120 degrees of flexion with gravity was easily obtained. The anterior/posterior or medial/lateral laxity in flexion or extension and the patella tracked well. The joint was further irrigated with pulse lavage. The arthrotomy was closed with #2 T[place] in iuguyr-lh-vjyvd interrupted fashion. Knee was flexed. The patella tracked well. The repair was stable. The subcutaneous tissues were further irrigated using a total of 6 liters throughout the procedure. 0 Vicryl was used for deep subcutaneous layer, 2-0 Vicryl for the superficial subcutaneous layer, roopa were used on the skin. A soft dressing was applied. The patient was transported to the recovery room awake and in stable condition. Job ID: [id number] DocumentID: [id number] Dictated Date: 01/10/2023 09:18:17 Diesel Dinkey Operator Date: 01/10/2023 14:51:00 Dictated By: RAHUL PINEDA MD
[2023-01-10] MEDS: oxyCODONE/ACETAMINOPHEN 5/325MG TABLET PO PRN ×3 (15:21→23:54)
[2023-01-10] MEDS: CEFUROXIME INJECTION 750 MG in NS (IVPB) 50 ML 50 ML IV SCH ×2 (15:21→23:00)
[2023-01-10] MEDS: GLIMEPIRIDE 2 MG TABLET PO SCH (17:31)
[2023-01-10] MEDS: GABAPENTIN 300 MG CAPSULE PO SCH (19:48)
[2023-01-10] MEDS: SENNA W/DOCUSATE (SENOKOT S) TABLET PO SCH (20:34)
[2023-01-11] MEDS: diphenhydrAMINE INJ 50 MG/ML VIAL IVP PRN ×2 (03:24→18:08)
[2023-01-11 03:34] VITALS: BP 104/64
[2023-01-11 05:45] LABS: HEMOGLOBIN 11.4 g/dL (11.5-16.0)
[2023-01-11] MEDS: MULTIVIT W/MINERALS TAB (THERAGRAN M) PO SCH (06:24)
[2023-01-11] MEDS: GLIMEPIRIDE 2 MG TABLET PO SCH ×2 (06:24→17:47)
[2023-01-11 07:30] VITALS: BP 118/85
--- NOTE | 2023-01-11 08:03 | Progress Note ---
Standard Progress Note Progress Notes/Assess & Plan Date Seen by a Provider: Jan 11, 2023 Time Seen by a Provider: 07:51 Progress/Assessment & Plan post op check no complaints radiographs--hw well positioned without fracture RLE--spinal in effect 2 plus DP pulse with brisk cap refill s/p RTKA mobilize when able Final Diagnosis no complaints Laboratory Tests Test 01/10/23 11:28 01/10/23 15:11 01/10/23 20:22 01/11/23 05:15 Range/Units Glucometer 189 H 147 H 119 H 89 70-110 MG/DL Test 01/11/23 05:19 Range/Units Hemoglobin 11.4 L 11.5-16.0 g/dL Hematocrit 35 35-52 % Vital Signs Date Time Temp Pulse Resp B/P (MAP) Pulse Ox O2 Delivery O2 Flow Rate FiO2 01/11/23 07:30 37.2 77 22 118/85 (96) 99 Room Air 01/11/23 03:34 36.1 78 19 104/64 (77) 99 Room Air 01/10/23 23:14 36.3 66 19 108/61 (77) 99 Room Air 0.00 0.00 01/10/23 19:45 Room Air 01/10/23 19:09 36.4 67 19 123/73 (90) 100 Room Air 01/10/23 15:07 35.7 70 19 117/75 (89) 100 Room Air 01/10/23 14:45 100 Room Air 0.00 01/10/23 11:19 36.2 67 18 123/60 (81) 99 Room Air 01/10/23 10:18 36.0 82 18 121/62 (81) 98 Room Air 01/10/23 10:10 Room Air 01/10/23 10:05 Room Air 01/10/23 10:00 36.5 14 118/73 (88) 98 Room Air 01/10/23 09:55 Room Air 01/10/23 09:50 12 114/70 (85) 99 OxyMask 3.00 01/10/23 09:40 14 113/70 (84) 100 OxyMask 3.00 01/10/23 09:40 OxyMask 3.00 01/10/23 09:30 16 119/73 (88) 100 OxyMask 3.00 01/10/23 09:25 OxyMask 3.00 01/10/23 09:20 16 108/65 (79) 100 OxyMask 3.00 01/10/23 09:12 36.6 16 114/67 (83) 99 OxyMask 8 01/10/23 09:12 OxyMask 8 I & O 01/11/23 07:00 Intake Total 4900 ml Output Total 300 ml Balance 4600 ml RLE--intact DF and PF of toes and ankle intact sensation to light touch throughout no calf tenderness neg Cassidy's s/p RTKA continue PT/ OT CODIE PINEDA MD Jan 11, 2023 08:03
[2023-01-11] MEDS: PARoxetine 10 MG (PAXIL) TAB PO SCH (08:12)
[2023-01-11] MEDS: ASPIRIN 325 MG TABLET PO SCH (08:12)
[2023-01-11] MEDS: oxyCODONE/ACETAMINOPHEN 5/325MG TABLET PO PRN ×3 (08:13→20:28)
[2023-01-11] MEDS: CELECOXIB 100 MG CAPSULE PO SCH (08:13)
[2023-01-11] MEDS: SENNA W/DOCUSATE (SENOKOT S) TABLET PO SCH ×2 (08:17→20:29)
[2023-01-11] MEDS: ENOXAPARIN 30 MG/0.3 ML SYRINGE SC SCH ×2 (08:17→20:29)
--- NOTE | 2023-01-11 09:17 | DISCHARGE SUMMARY ---
DIAGNOSES: 1. Right knee primary osteoarthritis. 2. Noninsulin dependent diabetes type 2. 3. Hyperlipidemia. PROCEDURE: Right total knee arthroplasty. SUMMARY: The patient is a 52-year-old female who underwent a right total knee arthroplasty on the day of admission. Postoperatively, she did well. At the time of discharge, her wound was clean and dry. She had no calf tenderness. Negative Homans sign. She was tolerating diet well and tolerating pain with oral pain medication. CONDITION AT DISCHARGE: Good. DISCHARGE DIET: Regular. FOLLOWUP: Followup is in 3 weeks. ACTIVITIES: Weightbearing as tolerated with walker as needed. DISCHARGE MEDICATIONS: Home medications plus one aspirin per day for 30 days. Job ID: [id number] DocumentID: [id number] Dictated Date: 01/11/2023 08:04:55 Retail Performance Specialist Date: 01/11/2023 09:16:00 Dictated By: CODIE PINEDA MD
--- NOTE | 2023-01-11 09:54 | Physical Therapy Daily Note ---
PT Daily Note-Current Subjective Patient agrees to PT. Pain Numeric Pain Scale: 8 Location: Right Location Body Site: Knee Pain Description: Acute Section J - Health Conditions 1. Rarely or not at all 2. Occasionally 3. Frequently 4. Almost constantly 8. Unable to answer Pain Effect on Sleep: 2 Pain Interference with Therapy: 2 Pain Interference w/Day-to-Day: 2 Mental Status Patient Orientation: Normal For Age Transfers SCALE: Activities may be completed with or without assistive devices. 0-Vedfhdepxy-llzslka completes the activity by him/herself with no assistance from a helper. 5-Set-up or Clean-up Assistance-helper sets up or cleans up; patient completes activity. [place] assists only prior to or following the activity. 4-Supervision or Touching Assistance-helper provides verbal cues and/or touching/steadying and/or contact guard assistance as patient completes activity. Assistance may be provided throughout the activity or intermittently. 3-Partial/Moderate Assistance-helper does LESS THAN HALF the effort. [place] lifts, holds or supports trunk or limbs, but provides less than half the effort. 2-Substantial/Maximal Assistance-helper does MORE THAN HALF the effort. [place] lifts or holds trunk or limbs and provides more than half the effort. 2-Pztamxdnc-pfiqho does ALL the effort. Patient does none of the effort to complete the activity. Or, the assistance of 2 or more helpers is required for the patient to complete the activity. If activity was not attempted, code reason: 7-Patient Refused. 9-Not Applicable-not attempted and the patient did not perform the activity before the current illness, exacerbation or injury. 10-Not Attempted due to Environmental Limitations-(lack of equipment, weather restraints, etc.). 88-Not Attempted due to Medical Conditions or Safety Concerns. Sit to Lying (QC): 6 Lying to Sitting/Side of Bed(Q: 6 Sit to Stand (QC): 6 Chair/Sic-at-Zlfdb Xfer(QC): 6 Weight Bearing Right Lower Extremity: Right Weight Bearing/Tolerated Left Lower Extremity: Left Full Weight Bearing Gait Training Distance: 350' Walk 10 feet (QC): 6 Walk 50 ft with 2 Turns(QC): 6 Walk 150 ft (QC): 6 Gait Assistive Device: FWW slow, reciprocal pattern/antalgic Exercises Supine Ex: Ankle pumps, Quad Set, Heel Slides, Straight leg raise Supine Reps: 12 Seated Therapy Exercises: Long arc quads Seated Reps: 12 Assessment Patient progressing with treatment plan and is up independent in room. AROM right knee 10-90 degrees. PT Half-Way Goals Public Health Policy Analyst Goals PT Half-Way Goals Time Frame: Feb 01, 2023 Roll Left & Right (QC): 6 Sit to Lying (QC): 6 Lying-Sitting on Side/Bed(QC): 6 Sit to Stand (QC): 6 Chair/Nns-ce-Srrsm Xfer(QC): 6 Toilet Transfer (QC): 6 Does the Patient Walk: Yes Walk 10 feet (QC): 5 Walk 50ft with 2 Turns (QC): 5 Walk 150 ft (QC): 5 1 Step (curb) (QC): 3 4 Steps (QC): 3 12 Steps (QC): 3 PT Plan Treatment/Plan Treatment Plan: Continue Plan of Care Treatment Plan: Bed Mobility, Education, Functional Activity [place], Functional Strength, Group Therapy, Gait, Safety, Therapeutic Exercise, Transfers Treatment Duration: Feb 03, 2023 Frequency: 11 times per week Patient and/or Family Agrees t: Yes Time Time In: 810 Time Out: 827 DATE: Jan 11, 2023 Total Billed Treatment Time: 17 Total Billed Treatment 1 visit FA 17 min BETH LÓPEZ PT Jan 11, 2023 09:54
[2023-01-11 11:30] VITALS: BP 118/65
[2023-01-11] MEDS ORDERED: CHOL10007 PO (11:46)
[2023-01-11] MEDS ORDERED: TRAM50TA3 PO (11:46)
[2023-01-11] MEDS ORDERED: MV-M1TAB57 PO (11:46)
[2023-01-11] MEDS ORDERED: CALC-823 PO (11:46)
[2023-01-11] MEDS ORDERED: ONDA4TAB11 PO (11:46)
[2023-01-11] MEDS ORDERED: MELO15TA39 PO (11:46)
[2023-01-11] MEDS ORDERED: OXYC1TAB11 PO (11:46)
[2023-01-11] MEDS ORDERED: GABA300C PO (11:46)
--- NOTE | 2023-01-11 13:30 | Physical Therapy Daily Note ---
PT Daily Note-Current Subjective Patient agrees to PT. Pain Numeric Pain Scale: 7 Location: Right Location Body Site: Knee Pain Description: Acute Section J - Health Conditions 1. Rarely or not at all 2. Occasionally 3. Frequently 4. Almost constantly 8. Unable to answer Pain Effect on Sleep: 2 Pain Interference with Therapy: 2 Pain Interference w/Day-to-Day: 2 Mental Status Patient Orientation: Normal For Age Attachments: [place] Transfers SCALE: Activities may be completed with or without assistive devices. 9-Piqdvxmtod-vpdtpvi completes the activity by him/herself with no assistance from a helper. 5-Set-up or Clean-up Assistance-helper sets up or cleans up; patient completes activity. [place] assists only prior to or following the activity. 4-Supervision or Touching Assistance-helper provides verbal cues and/or touchi ng/steadying and/or contact guard assistance as patient completes activity. Assistance may be provided throughout the activity or intermittently. 3-Partial/Moderate Assistance-helper does LESS THAN HALF the effort. [place] lifts, holds or supports trunk or limbs, but provides less than half the effort. 2-Substantial/Maximal Assistance-helper does MORE THAN HALF the effort. [place] lifts or holds trunk or limbs and provides more than half the effort. 1-Dswjxzgiq-nfeskx does ALL the effort. Patient does none of the effort to complete the activity. Or, the assistance of 2 or more helpers is required for the patient to complete the activity. If activity was not attempted, code reason: 7-Patient Refused. 9-Not Applicable-not attempted and the patient did not perform the activity before the current illness, exacerbation or injury. 10-Not Attempted due to Environmental Limitations-(lack of equipment, weather restraints, etc.). 88-Not Attempted due to Medical Conditions or Safety Concerns. Sit to Stand (QC): 6 Weight Bearing Right Lower Extremity: Right Weight Bearing/Tolerated Left Lower Extremity: Left Full Weight Bearing Gait Training Distance: 400' Walk 10 feet (QC): 6 Walk 50 ft with 2 Turns(QC): 6 Walk 150 ft (QC): 6 Gait Assistive Device: FWW reciprocal pattern/antalgic Exercises Seated Therapy Exercises: Long arc quads Seated Reps: 15 Assessment Patient progressing with treatment plan and is up independently in room. PT instructed patient to perform HEP PRN. Patient voices understanding. PT Programs Director Goals [facility] Goals PT Programs Director Goals Time Frame: Feb 01, 2023 Roll Left & Right (QC): 6 Sit to Lying (QC): 6 Lying-Sitting on Side/Bed(QC): 6 Sit to Stand (QC): 6 Chair/Tsh-zt-Trafw Xfer(QC): 6 Toilet Transfer (QC): 6 Does the Patient Walk: Yes Walk 10 feet (QC): 5 Walk 50ft with 2 Turns (QC): 5 Walk 150 ft (QC): 5 1 Step (curb) (QC): 3 4 Steps (QC): 3 12 Steps (QC): 3 PT Plan Treatment/Plan Treatment Plan: Continue Plan of Care Treatment Plan: Bed Mobility, Education, Functional Activity [place], Functional Strength, Group Therapy, Gait, Safety, Therapeutic Exercise, Transfers Treatment Duration: Feb 03, 2023 Frequency: 11 times per week Patient and/or Family Agrees t: Yes Time Time In: 1300 Time Out: 1311 DATE: Jan 11, 2023 Total Billed Treatment Time: 11 Total Billed Treatment 1 visit FA 11 min BETH LÓPEZ PT Jan 11, 2023 13:30
[2023-01-11 15:10] VITALS: BP 110/69
[2023-01-11 19:19] VITALS: BP 113/71
[2023-01-11] MEDS: GABAPENTIN 300 MG CAPSULE PO SCH (20:28)
[2023-01-11 23:07] VITALS: BP 112/71
[2023-01-12] MEDS: oxyCODONE/ACETAMINOPHEN 5/325MG TABLET PO PRN ×3 (00:18→08:02)
[2023-01-12] MEDS: MULTIVIT W/MINERALS TAB (THERAGRAN M) PO SCH (05:44)
--- NOTE | 2023-01-12 06:56 | Progress Note ---
Standard Progress Note Progress Notes/Assess & Plan Date Seen by a Provider: Jan 12, 2023 Time Seen by a Provider: 06:48 Progress/Assessment & Plan post op check no complaints radiographs--hw well positioned without fracture RLE--spinal in effect 2 plus DP pulse with brisk cap refill s/p RTKA mobilize when able Final Diagnosis no complaints Laboratory Tests Test 01/11/23 10:38 01/11/23 15:12 01/11/23 19:55 01/12/23 05:43 Range/Units Glucometer 147 H 184 H 141 H 102 70-110 MG/DL Vital Signs Date Time Temp Pulse Resp B/P (MAP) Pulse Ox O2 Delivery O2 Flow Rate FiO2 01/11/23 23:07 36.8 98 18 112/71 (85) 97 Room Air 01/11/23 20:30 Room Air 01/11/23 19:19 36.5 96 18 113/71 (85) 98 Room Air 01/11/23 15:10 36.0 75 19 110/69 (83) 100 Room Air 01/11/23 11:30 36.8 70 20 118/65 (82) 99 Room Air 01/11/23 08:00 Room Air 01/11/23 07:30 37.2 77 22 118/85 (96) 99 Room Air I & O 01/12/23 06:59 Intake Total 1940 ml Output Total 1400 ml Balance 540 ml RLE--incision clean and dry no calf tenderness neg Cassidy's s/p RTKA doing well DC home after PT CODIE PINEDA MD Jan 12, 2023 06:56
[2023-01-12 07:22] VITALS: BP 124/65
[2023-01-12] MEDS: GLIMEPIRIDE 2 MG TABLET PO SCH (08:02)
[2023-01-12] MEDS: ENOXAPARIN 30 MG/0.3 ML SYRINGE SC SCH (08:02)
[2023-01-12] MEDS: PARoxetine 10 MG (PAXIL) TAB PO SCH (08:02)
[2023-01-12] MEDS: CELECOXIB 100 MG CAPSULE PO SCH (08:02)
[2023-01-12] MEDS: ASPIRIN 325 MG TABLET PO SCH (08:02)
[2023-01-12] MEDS: SENNA W/DOCUSATE (SENOKOT S) TABLET PO SCH (08:03)
[2023-01-12] MEDS ORDERED: CYCLOBENZAPRINE 10 MG TABLET PO PRN (09:30)
--- NOTE | 2023-01-12 10:00 | Physical Therapy Daily Note ---
PT Daily Note-Current Subjective Patient agrees to PT. 03/13 right knee pain with meds issued Pain Section J - Health Conditions 1. Rarely or not at all 2. Occasionally 3. Frequently 4. Almost constantly 8. Unable to answer Pain Effect on Sleep: 2 Pain Interference with Therapy: 2 Pain Interference w/Day-to-Day: 2 Mental Status Patient Orientation: Normal For Age Transfers SCALE: Activities may be completed with or without assistive devices. 0-Yvqdwwbizz-kibksfy completes the activity by him/herself with no assistance from a helper. 5-Set-up or Clean-up Assistance-helper sets up or cleans up; patient completes activity. [place] assists only prior to or following the activity. 4-Supervision or Touching Assistance-helper provides verbal cues and/or touching/steadying and/or contact guard assistance as patient completes activity. Assistance may be provided throughout the activity or intermittently. 3-Partial/Moderate Assistance-helper does LESS THAN HALF the effort. [place] lifts, holds or supports trunk or limbs, but provides less than half the effort. 2-Substantial/Maximal Assistance-helper does MORE THAN HALF the effort. [place] lifts or holds trunk or limbs and provides more than half the effort. 3-Oaqfrwita-dkyuni does ALL the effort. Patient does none of the effort to complete the activity. Or, the assistance of 2 or more helpers is required for the patient to complete the activity. If activity was not attempted, code reason: 7-Patient Refused. 9-Not Applicable-not attempted and the patient did not perform the activity before the current illness, exacerbation or injury. 10-Not Attempted due to Environmental Limitations-(lack of equipment, weather restraints, etc.). 88-Not Attempted due to Medical Conditions or Safety Concerns. Sit to Stand (QC): 6 Chair/Xoq-qt-Vhkxy Xfer(QC): 6 Weight Bearing Right Lower Extremity: Right Weight Bearing/Tolerated Left Lower Extremity: Left Full Weight Bearing Gait Training Distance: 200' Walk 10 feet (QC): 6 Walk 50 ft with 2 Turns(QC): 6 Walk 150 ft (QC): 6 Gait Assistive Device: FWW antalgic, reciprocal pattern Assessment Patient is very tearful due to uncontrolled right knee pain. Patient to dismiss to home on this date. She is independent with all mobility. Pain is limiting progress. PT Alf Goals Alf Goals PT Alf Goals Time Frame: Feb 01, 2023 Roll Left & Right (QC): 6 Sit to Lying (QC): 6 Lying-Sitting on Side/Bed(QC): 6 Sit to Stand (QC): 6 Chair/Vrv-ei-Kddgb Xfer(QC): 6 Toilet Transfer (QC): 6 Does the Patient Walk: Yes Walk 10 feet (QC): 5 Walk 50ft with 2 Turns (QC): 5 Walk 150 ft (QC): 5 1 Step (curb) (QC): 3 4 Steps (QC): 3 12 Steps (QC): 3 PT Plan Treatment/Plan Treatment Plan: Discontinue PT Treatment Plan: Bed Mobility, Education, Functional Activity [place], Functional Strength, Group Therapy, Gait, Safety, Therapeutic Exercise, Transfers Treatment Duration: Feb 03, 2023 Frequency: 11 times per week Patient and/or Family Agrees t: Yes Time Time In: 900 Time Out: 916 DATE: Jan 12, 2023 Total Billed Treatment Time: 16 Total Billed Treatment 1 visit FA 16 min BETH LÓPEZ PT Jan 12, 2023 10:00
[2023-01-12] MEDS ORDERED: ACET-93 PO (10:41)
[2023-01-12 11:00] VITALS: BP 124/65
== END 2023-01-12 11:00 | disposition home or self-care (01) | DRG 470 ==
LOC: 4TH 05:50 → SURG 05:51 → 4TH 10:11
PROVIDERS: ADMIT Orthopaedic Surgery; ATTEND Orthopaedic Surgery
PROC: 0SRC0J9 Replacement of Right Knee Joint with Synthetic Substitute, Cemented, Open Approach (ICD-10-PCS; principal; 2023-01-10 07:26)
DX: M17.11 Unilateral primary osteoarthritis, right knee (principal); E11.9 Type 2 diabetes mellitus without complications; E78.00 Pure hypercholesterolemia, unspecified; G43.909 Migraine, unspecified, not intractable, without status migrainosus; K21.9 Gastro-esophageal reflux disease without esophagitis; F41.9 Anxiety disorder, unspecified; Z92.21 Personal history of antineoplastic chemotherapy; J45.909 Unspecified asthma, uncomplicated
CPT/HCPCS: 36415; 73560; 82947; 85014; 85018; 94664; 94760

== ENCOUNTER 2023-01-31 09:18 | Outpatient (RCR) | payer BC ==
--- NOTE | 2023-01-11 10:54 | Anesthesia-Regional Post-Op ---
Regional Patient Condition Mental Status: Alert, Oriented x3 Circulation: Same as Pre-Op Headache: Absent Sensation: Full Recovery Motor Block: Absent Post Op Complications Complications None Follow Up Care/Instructions Patient Instructions None needed. Anesthesia/Patient Condition Patient is doing well, no complaints, stable vital signs, no apparent adverse anesthesia problems. No complications reported per nursing. ISA ESPANA CRNA Jan 11, 2023 10:54
[~2023-01-31 09:18] MED LIST changes: +ACET-93 PO; +CALC-823 PO; +CHOL10007 PO; +GABA300C PO; +MELO15TA39 PO; +MV-M1TAB57 PO; +ONDA4TAB11 PO; +TRAM50TA3 PO
== END 2023-02-01 | disposition home or self-care (01) ==
PROVIDERS: ATTEND Orthopaedic Surgery
DX: Z47.1 Aftercare following joint replacement surgery (principal); Z96.651 Presence of right artificial knee joint